=== PATIENT | female | born 1995 | race African-American/Black ===

== ENCOUNTER 2021-03-27 06:27 | Inpatient (IN) | payer SELFPAY ==
[~2021-03-27] VITALS: Ht 170.2 cm; Wt 104.5 kg
--- NOTE | 2021-03-27 07:29 | ED.ADGEN ---
Past Medical History Past Surgical History: No Surgical History General Adult EDM: Chief Complaint: SHORTNESS OF BREATH HPI: HPI: Patient is a 25 year old female coming to the emergency because she thinks she might have Covid. Patient has had shortness of breath, cough, body aches for the past couple days. She is not vaccinated. Denies any history of asthma, COPD, or smoking. States she has a albuterol inhaler that she had from having bronchitis that she has been using. Review of Systems: Review of Systems: All other systems within normal limits except for as noted in the HPI Current Medications: Current Medications Medications (Trade) Dose Ordered Sig/Jeff Start Time Stop Time Status Last Admin Dose Admin Info (CONTRAST GIVEN -- Rx MONITORING) 1 each PRN DAILY PRN 03/27/21 10:30 03/29/21 10:29 Iohexol (Omnipaque 350 Mg/ml) 100 ml 1X ONCE 03/27/21 10:30 03/27/21 10:31 DC 03/27/21 10:55 100 ML Ketorolac Tromethamine (Toradol 15mg Vial) 15 mg 1X ONCE 03/27/21 09:45 03/27/21 09:46 DC 03/27/21 09:52 15 MG Sodium Chloride 1,000 ml @ 1,000 mls/hr 1X ONCE 03/27/21 08:15 03/27/21 09:14 DC 03/27/21 08:42 1,000 MLS/HR Allergies: Allergies: Allergies Coded Allergies Type Severity Reaction Last Updated Verified No Known Drug Allergies 03/27/21 No Physical Exam: PE: Constitutional: Well developed, well nourished, no acute distress, non-toxic appearance. [] HENT: Normocephalic, atraumatic, bilateral external ears normal, nose normal. [] Eyes: PERRLA, conjunctiva normal, no discharge. [] Neck: No rigidity, supple, no stridor. [] Cardiovascular: Regular rate and rhythm, brisk cap refill [] Lungs & Thorax: Non labored symmetric respirations, mild tachypnea, bilateral rhonchi Abdomen: Soft, nondistended. Skin: Warm, dry, no erythema, no rash. [] Back: Unremarkable Extremities: No deformities, range of motion grossly intact, no lower extremity edema [] Neurologic: Alert and oriented X 3, no focal deficits noted. [] Psychologic: Affect normal, judgement normal, mood normal. [] Current Patient Data: Labs: Laboratory Tests Test 03/27/21 07:34 03/27/21 08:40 03/27/21 08:48 Influenza Type A Antigen Negative (NEGATIVE) Influenza Type B Antigen Negative (NEGATIVE) SARS-CoV-2 Antigen (Rapid) Negative (NEGATIVE) White Blood Count 7.2 x10^3/uL (4.0-11.0) Red Blood Count 5.10 x10^6/uL (3.50-5.40) Hemoglobin 14.1 g/dL (12.0-15.5) Hematocrit 42.5 % (36.0-47.0) Mean Corpuscular Volume 83 fL (79-100) Mean Corpuscular Hemoglobin 28 pg (25-35) Mean Corpuscular Hemoglobin Concent 33 g/dL (31-37) Red Cell Distribution Width 14.4 % (11.5-14.5) Platelet Count 221 x10^3/uL (140-400) Neutrophils (%) (Auto) 90 % (31-73) H Lymphocytes (%) (Auto) 4 % (24-48) L Monocytes (%) (Auto) 6 % (0-9) Eosinophils (%) (Auto) 0 % (0-3) Basophils (%) (Auto) 1 % (0-3) Neutrophils # (Auto) 6.4 x10^3/uL (1.8-7.7) Lymphocytes # (Auto) 0.3 x10^3/uL (1.0-4.8) L Monocytes # (Auto) 0.4 x10^3/uL (0.0-1.1) Eosinophils # (Auto) 0.0 x10^3/uL (0.0-0.7) Basophils # (Auto) 0.0 x10^3/uL (0.0-0.2) Segmented Neutrophils % 93 % (35-66) H Lymphocytes % 4 % (24-48) L Monocytes % 2 % (0-10) Basophils % 1 % (0-3) Platelet Estimate Adequate (ADEQUATE) D-Dimer (Ary) 0.84 ug/mlFEU (0.00-0.50) H Urine Collection Type Unknown Urine Color Yellow Urine Clarity Clear Urine pH 6.0 (<5.0-8.0) Urine Specific [place] >=1.030 (1.000-1.030) Urine Protein Negative mg/dL (NEG-TRACE) Urine Glucose (UA) Negative mg/dL (NEG) Urine Ketones (Stick) 40 mg/dL (NEG) Urine Blood Small (NEG) Urine Nitrite Negative (NEG) Urine Bilirubin Negative (NEG) Urine Urobilinogen Dipstick 1.0 mg/dL (0.2 mg/dL) Urine Leukocyte Esterase Negative (NEG) Urine RBC 0 /HPF (0-2) Urine WBC 0 /HPF (0-4) Urine Squamous Epithelial Cells Mod /LPF Urine Bacteria 0 /HPF (0-FEW) Urine Mucus Marked /LPF Sodium Level 137 mmol/L (136-145) Potassium Level 4.1 mmol/L (3.5-5.1) Chloride Level 102 mmol/L (98-107) Carbon Dioxide Level 23 mmol/L (21-32) Anion Gap 12 (6-14) Blood Urea Nitrogen 7 mg/dL (7-20) Creatinine 0.8 mg/dL (0.6-1.0) Estimated GFR (Cockcroft-Gault) 104.9 BUN/Creatinine Ratio 9 (6-20) Glucose Level 98 mg/dL (70-99) Calcium Level 8.9 mg/dL (8.5-10.1) Total Bilirubin 0.4 mg/dL (0.2-1.0) Aspartate Amino Transferase (AST) 29 U/L (15-37) Alanine Aminotransferase (ALT) 42 U/L (14-59) Alkaline Phosphatase 55 U/L (46-116) BU-Cjp-L-Type Natriuretic Peptide 82 pg/mL (0-124) Total Protein 7.8 g/dL (6.4-8.2) Albumin 3.9 g/dL (3.4-5.0) Albumin/Globulin Ratio 1.0 (1.0-1.7) POC Urine HCG, Qualitative Hcg negative (Negative) Laboratory Tests 03/27/21 08:40 Laboratory Tests 03/27/21 08:40 Vital Signs: Vital Signs Date Time Temp Pulse Resp B/P (MAP) Pulse Ox O2 Delivery O2 Flow Rate FiO2 03/27/21 10:38 99 40 135/80 (98) 100 Nasal Cannula 2.0 03/27/21 07:00 99.6 99.6 EKG: EKG: [] Heart Score: C/O Chest Pain: No Risk Factors: Risk Factors: DM, Current or recent (<one month) smoker, HTN, HLP, family history of CAD, obesity. Risk Scores: Score 0 - 3: 2.5% MACE over next 6 weeks - Discharge Home Score 4 - 6: 20.3% MACE over next 6 weeks - Admit for Clinical Observation Score 7 - 10: 72.7% MACE over next 6 weeks - Early Invasive Strategies Radiology/Procedures: Radiology/Procedures: [facility] [address] [place] [address] IMAGING REPORT Signed PATIENT: SYLVIE CHRISTENSEN NACCOUNT: [id number] : 1995 LOCATION: ER AGE: 25 SEX: F EXAM STATUS: REG ER ORD. PHYSICIAN: LAURA LANDEROS MD REASON: ELEVATED D DIMER. R/O PE PROCEDURE: CT ANGIOGRAPHY CHEST CTA CHEST dated 03/27/2021 10:35 AM Indication:Reason: ELEVATED D DIMER. R/O PE . Shortness of breath. Comparison: No comparison is available. Technique: CT images were made using an infusion of 100 MLO Omnipaque 350. MIP reconstructions also were performed. One or more of the following individualized dose reduction techniques were utilized for this examination: 1. Automated exposure control 2. Adjustment of the mA and/or kV according to patient size 3. Use of iterative reconstruction technique Findings: There is an irregular opacity in the periphery of the right upper lobe. This measures about 1.7 cm AP and 1.2 cm medial laterally. There is mild respiratory motion artifact slightly limiting evaluation. Other smaller peripheral areas of opacity are seen in both lungs. Some of these resemble atelectasis, although others are more nodular in appearance. The central airways show no obstruction. There is a mildly enlarged left axillary node measuring about 1.4 x 1.1 cm. There are also enlarged right hilar nodes measuring up to about 1.3 cm. Mild subcarinal fullness is also seen. There are borderline enlarged left hilar nodes. Evaluation of the pulmonary arterial tree shows modest opacification of the vessels. There is mild motion artifact. No convincing abnormal filling defect is seen. Images through the upper abdomen show no apparent abnormality. IMPRESSION: No evidence of pulmonary embolism. Evaluation of smaller branches is slightly limited by some respiratory motion and only modest vessel opacification. There are pulmonary opacities bilaterally. Given the patient's age, neoplasm would be unlikely. These may be infectious/inflammatory such as septic emboli. There are also some mildly prominent lymph nodes, as discussed above. Follow-up CT would be useful to confirm these clear. Electronically signed by: Jared Li Jr., MD (03/27/2021 11:08 AM) [facility] DICTATED and SIGNED BY: JARED LI Jr, MD DATE: 03/27/21 [id number] [] Course & Med Decision Making: Course & Med Decision Making Pertinent Labs and Imaging studies reviewed. (See chart for details) Patient tachypneic and desatted 80% on room air. Was on nasal cannula was started on steroids antibiotics for suspected septic emboli on CTA and admitted to hospitalist for antibiotics and further investigation into source of the emb sadia [] Dragon Disclaimer: Dragon Disclaimer: This electronic medical record was generated, in whole or in part, using a voice recognition dictation system. Departure Departure Impression: Primary Impression: Person under investigation for COVID-19 Disposition: ADMITTED INPATIENT Admitting Physician: JENNIFER Condition: GUARDED Referrals: UNKNOWN PCP NAME (PCP) LAURA LANDEROS MD Mar 27, 2021 07:29
[2021-03-27 08:02] LABS: INFLUENZA A PATIENT NEGATIVE (NEGATIVE); INFLUENZA B PATIENT NEGATIVE (NEGATIVE)
[2021-03-27] MEDS ORDERED: IV NORMAL SALINE 1000ML BAG 1,000 ML IV ONE (08:15)
--- NOTE | 2021-03-27 08:26 | RAD ---
PROCEDURE: XR CHEST 1V.03/27/2021 8:23 AM REASON FOR STUDY: Reason: soa / Spl. Instructions: / History: . COMPARISON: None. FINDINGS: The lungs are clear. No pleural fluid is seen. Heart size and pulmonary vascularity appear normal. IMPRESSION: No apparent acute abnormality. Electronically signed by: Irving Brand Jr., MD (03/27/2021 8:23 AM) [facility]ENTER[facility]andon
[2021-03-27 09:02] LABS: BILIRUBIN,URINE NEGATIVE (NEG); CLARITY,URINE CLEAR; COLOR,URINE YELLOW; NITRITE,URINE NEGATIVE (NEG); PROTEIN,URINE NEGATIVE (NEG-TRACE)
[2021-03-27 09:04] LABS: BASO % 1 % (0-3); EOS % 0 % (0-3); HEMATOCRIT 42.5 % (36.0-47.0); HEMOGLOBIN 14.1 g/dL (12.0-15.5); LYMPH # 0.3 x10^3/uL (1.0-4.8); LYMPH % 4 % (24-48); MEAN CORPUSCULAR HEMOGLOBIN 28 pg (25-35); MEAN CORPUSCULAR HGB CONC 33 g/dL (31-37); MEAN CORPUSCULAR VOLUME 83 fL (79-100); MONO # 0.4 x10^3/uL (0.0-1.1); MONO % 6 % (0-9); NEUT # 6.4 x10^3/uL (1.8-7.7); NEUT % 90 % (31-73); PLATELET COUNT 221 x10^3/uL (140-400); RED CELL DISTRIBUTION WIDTH 14.4 % (11.5-14.5); WHITE BLOOD COUNT 7.2 x10^3/uL (4.0-11.0)
[2021-03-27 09:09] LABS: CALCIUM 8.9 mg/dL (8.5-10.1); CREATININE 0.8 mg/dL (0.6-1.0); GFR 104.9; POTASSIUM 4.1 mmol/L (3.5-5.1)
[2021-03-27 09:13] LABS: BACTERIA,URINE 0 /HPF (0-FEW); RBC,URINE 0 /HPF (0-2); WBC,URINE 0 /HPF (0-4)
[2021-03-27 09:15] LABS: ALBUMIN 3.9 g/dL (3.4-5.0); TOTAL BILIRUBIN 0.4 mg/dL (0.2-1.0); TOTAL PROTEIN 7.8 g/dL (6.4-8.2)
[2021-03-27] MEDS ORDERED: KETOROLAC 15 MG/ML VIAL. IVP ONE (09:45)
[2021-03-27 10:17] LABS: % BASOS 1 % (0-3); % LYMPHS 4 % (24-48); % MONOS 2 % (0-10); % SEGS 93 % (35-66)
[2021-03-27 10:18] LABS: PLT ESTIMATE ADEQUATE (ADEQUATE)
[2021-03-27] MEDS ORDERED: IOHEXOL 350 MG/ML 100 ML VIAL. IV ONE (10:30)
[2021-03-27] MEDS ORDERED: CONTRAST GIVEN. MC PRN (10:30)
--- NOTE | 2021-03-27 11:10 | RAD ---
CTA CHEST dated 03/27/2021 10:35 AM Indication:Reason: ELEVATED D DIMER. R/O PE . Shortness of breath. Comparison: No comparison is available. Technique: CT images were made using an infusion of 100 MLO Omnipaque 350. MIP reconstructions also w ere performed. One or more of the following individualized dose reduction techniques were utilized for this examinat ion: 1. Automated exposure control 2. Adjustment of the mA and/or kV according to patient size 3. Use of iterative reconstruction technique Findings: There is an irregular opacity in the periphery of the right upper lobe. This measures about 1.7 cm AP and 1.2 cm medial laterally. There is mild respiratory motion artifact slightly limiting evaluation. Other smaller peripheral areas of opacity are seen in both lungs. Some of these resemble atelectasis , although others are more nodular in appearance. The central airways show no obstruction. There is a mildly enlarged left axillary node measuring about 1.4 x 1.1 cm. There are also enlarged right hilar nodes measuring up to about 1.3 cm. Mild subcarinal fullness is also seen. There are borderline enla rged left hilar nodes. Evaluation of the pulmonary arterial tree shows modest opacification of the vessels. There is mild mo tion artifact. No convincing abnormal filling defect is seen. Images through the upper abdomen show no apparent abnormality. IMPRESSION: No evidence of pulmonary embolism. Evaluation of smaller branches is slightly limited by some respira tory motion and only modest vessel opacification. There are pulmonary opacities bilaterally. Given the patient's age, neoplasm would be unlikely. These may be infectious/inflammatory such as septic emboli. There are also some mildly prominent lymph nod es, as discussed above. Follow-up CT would be useful to confirm these clear. Electronically signed by: Irving Brand Jr., MD (03/27/2021 11:08 AM) [facility]ITAL[facility]andon
[2021-03-27] MEDS ORDERED: PIPERACILLIN/TAZOBACTAM 3.375 GM in IV NORMAL SALINE 50ML 50 ML IV ONE (12:00)
[2021-03-27] MEDS ORDERED: DEXAMETHASONE SOD PHOS 20 MG/5 ML VIAL. IV ONE (12:00)
[2021-03-27] MEDS ORDERED: VANCOMYCIN 2 GM in IV NORMAL SALINE 500ML BAG 500 ML IV ONE (12:00)
[2021-03-27] MEDS ORDERED: PIP/TAZO PER PHARMACY MC PRN (12:15)
[2021-03-27] MEDS ORDERED: ONDANSETRON PF 4 MG/2 ML VIAL. IVP PRN (12:15)
[2021-03-27] MEDS ORDERED: VANCOMYCIN PER PHARMACY MC PRN (12:15)
--- NOTE | 2021-03-27 12:28 | HP ---
DATE OF SERVICE: 03/27/2021 ADMIT DATE: 03/27/2021 CHIEF COMPLAINT: Shortness of breath. HISTORY OF PRESENT ILLNESS: The patient is a pleasant 25-year-old female who presents with shortness of breath. Clinically, she looks like she has COVID-19, but her COVID test is negative. We did a CAT scan that is showing some possible septic emboli in the lungs. I discussed the case with the ER physician. I am going to admit the patient and put on IV vancomycin and IV Zosyn, and consult Pulmonary Medicine. PAST MEDICAL HISTORY: Benign. ALLERGIES: None. FAMILY HISTORY: Diabetes. SOCIAL HISTORY: She does not drink, smoke or take drugs. She works with Medicare insurance. MEDICATIONS: Reviewed. Please refer to the MRAD. REVIEW OF SYSTEMS: GENERAL: No history of weight change, weakness or fevers. SKIN: No bruising, hair changes or rashes. EYES: No blurred, double or loss of vision. NOSE AND THROAT: No history of nosebleeds, hoarseness or sore throat. HEART: No history of palpitations, chest pain or shortness of breath on exertion. LUNGS: She complains of shortness of breath. GASTROINTESTINAL: Denies changes in appetite, nausea, vomiting, diarrhea or constipation. GENITOURINARY: No history of frequency, urgency, hesitancy or nocturia. NEUROLOGIC: Denies history of numbness, tingling, tremor or weakness. PSYCHIATRIC: No history of panic, anxiety or depression. ENDOCRINE: No history of heat or cold intolerance, polyuria or polydipsia. EXTREMITIES: Denies muscle weakness, joint pain, pain on walking or stiffness. PHYSICAL EXAMINATION: VITALS: Within normal limits and are stable. GENERAL: No apparent distress. Alert and oriented. HEENT: Normal cephalic atraumatic, external auditory canals are patent. Eyes: Extraocular muscles are intact, pupils are equally round and reactive to light and accommodation. MUSCULOSKELETAL: Well developed, well nourished, good range of motion. ENDOCRINE: No thyromegaly was palpated. LYMPHATICS: No cervical chain or axillary nodes were noted. HEMATOPOIETIC: No bruising. NECK: Supple, no JVD, no thyromegaly was noted. LUNGS: She has bibasilar crackles. HEART: RRR, S1, S2 present. Peripheral pulses intact, no obvious murmurs were noted. ABDOMEN: Soft, nontender. Positive bowel sounds, no organomegaly, normal bowel sounds. EXTREMITIES: Without any cyanosis, clubbing, or edema. Pedal pulses intact, Homans sign is negative. NEUROLOGIC: Normal speech, normal tone. A and O x 3, moves all extremities, no obvious focal deficits. PSYCHIATRIC: Normal affect, normal mood. Stable. SKIN: No ulcerations or rashes, good skin turgor, no jaundice. VASCULAR: Good capillary refill, neurovascular bundle appears to be intact. LABORATORY DATA: White count 7, hemoglobin 14, platelets 221. Electrolytes normal. BNP normal at 82. D-dimer is slightly high at 0.84. Urinalysis negative. COVID testing negative. ASSESSMENT AND PLAN: Shortness of breath with abnormal CAT scan of the chest, suspicious for possible pulmonary septic emboli. The patient has been admitted. We will start IV Zosyn, IV vancomycin. Consult Pulmonary Medicine. Home meds. Deep venous thrombosis prophylaxis. Full code. Cardiac monitoring. P.r.n. Tylenol, p.r.n. fentanyl, p.r.n. Zofran. MIRIAM/DAWOOD DR: Mingo TID: [id number]
[2021-03-27] MEDS: fentaNYL PF VIAL 100 MCG/2 ML VIAL IVP PRN ×2 (13:06→16:48)
--- NOTE | 2021-03-27 15:45 | NUR ---
Pharmacy Vancomycin Dosing Note S:Consulted to monitor and dose vancomycin started 03/27/21. O:SYLVIE CHRISTENSEN is a 25 year old F with possible septic emboli in lungs. Height: 5 feet, 7 inches Weight: 104.5 kg Dosing Weight: Actual Other Antibiotics: ZOSYN 4.5G IV Q6HRS LABS: Last BUN: 7 Last Creatinine: 0.8 Creatinine Clearance: > 100 mL/min Last WBC: 7 Last Procalcitonin: - Tmax (past 24 hours): 99.6 Microbiology: BLOOD CX PENDING I/O: 1050/200 A: Patient requires vancomycin for possible infectious embolic in lungs, goal trough 15-20 mcg/ml. Patient's SCr is 0.8 with an eCrCl of > 100 ml/min. Initiate the following: P: 1. Initiate Vancomycin 2000 mg IV x 1 dose, then 1250 mg IV q8h 2. Follow up Trough level on 03/28/21 at 1130 3. Pharmacy will continue to monitor, follow and adjust therapy as needed. REYMUNDO ARRIAGA [facility], 03/27/21 [id number]
[2021-03-27 16:19] LABS: BASE EXCESS COOX -4 mmol/L (-3-3); HCO3 COOX 20 mmol/L (21-28); PCO2 COOX 36 mmHg (35-46); PO2 COOX 62 mmHg (85-108); SAT O2 COOX 90 % (92-99)
[2021-03-27 16:20] LABS: METHEMOGLOBIN 0.4 % (0.0-1.9)
[2021-03-27 16:59] LABS: BARBITURATES NEG (NEG); BENZODIAZEPINES NEG (NEG); CANNABINOIDS POS (NEG); COCAINE NEG (NEG); METHADONE NEG (NEG); OPIATES NEG (NEG); PHENCYCLIDINE NEG (NEG)
[2021-03-27 17:00] LABS: AMPHETAMINE/METHAMPHETAMINE NEG (NEG)
[2021-03-27] MEDS: PIPERACILLIN/TAZOBACTAM 4.5 GM in IV NORMAL SALINE 100ML 100 ML IV SCH (18:36)
[2021-03-27] MEDS: ACETAMINOPHEN 325 MG TABLET. PO PRN (19:35)
[2021-03-27] MEDS: VANCOMYCIN 1.25 GM in IV NORMAL SALINE 250ML 250 ML IV SCH (19:48)
[2021-03-27] MEDS: IPRATRPIUM/ALBUTEROL 0.5/2.5MG 3 ML NEBU. NEB SCH (20:16)
[2021-03-27] MEDS ORDERED: diphenhydrAMINE HCL 25 MG CAPSULE PO ONE (21:30)
[2021-03-27] MEDS: SODIUM BICARBONATE VIAL 50 MEQ in IV 1/2 NORMAL SALINE 1,000 ML IV SCH (21:41)
[2021-03-28] MEDS: PIPERACILLIN/TAZOBACTAM 4.5 GM in IV NORMAL SALINE 100ML 100 ML IV SCH ×4 (00:09→18:34)
[2021-03-28] MEDS: ACETAMINOPHEN 325 MG TABLET. PO PRN ×2 (02:39→18:33)
[2021-03-28] MEDS: POLYVINYL ALCOHOL 1.4% OPHTH SOLUTION 15ML BOTTLE. OU PRN ×3 (02:39→10:19)
[2021-03-28 03:01] LABS: BASE EXCESS ABG -6 mmol/L (-3-3); HCO3 ABG 20 mmol/L (21-28); PCO2 ABG 40 mmHg (35-46); PO2 ABG 88 mmHg (85-108); SAT O2 ABG 95 % (92-99)
[2021-03-28 03:02] LABS: FIO2 ABG 40
[2021-03-28] MEDS: VANCOMYCIN 1.25 GM in IV NORMAL SALINE 250ML 250 ML IV SCH (03:42)
[2021-03-28] MEDS: IPRATRPIUM/ALBUTEROL 0.5/2.5MG 3 ML NEBU. NEB SCH ×7 (04:00→23:43)
[2021-03-28] MEDS: fentaNYL PF VIAL 100 MCG/2 ML VIAL IVP PRN ×3 (04:15→10:09)
[2021-03-28 07:46] LABS: CREATININE 0.9 mg/dL (0.6-1.0); GFR 91.6
--- NOTE | 2021-03-28 08:20 | PDOC ---
Infectious Disease Note Vital Sign Vital Signs Vital Signs Date Time Temp Pulse Resp B/P (MAP) Pulse Ox O2 Delivery O2 Flow Rate FiO2 03/28/21 07:33 98 BiPAP/CPAP 03/28/21 07:06 98.6 80 40 114/65 (81) 98.6 03/27/21 16:51 5.0 Labs Lab Laboratory Tests Test 03/27/21 08:40 03/27/21 08:48 03/27/21 16:05 03/27/21 20:20 White Blood Count 7.2 x10^3/uL (4.0-11.0) Red Blood Count 5.10 x10^6/uL (3.50-5.40) Hemoglobin 14.1 g/dL (12.0-15.5) Hematocrit 42.5 % (36.0-47.0) Mean Corpuscular Volume 83 fL (79-100) Mean Corpuscular Hemoglobin 28 pg (25-35) Mean Corpuscular Hemoglobin Concent 33 g/dL (31-37) Red Cell Distribution Width 14.4 % (11.5-14.5) Platelet Count 221 x10^3/uL (140-400) Neutrophils (%) (Auto) 90 % (31-73) Lymphocytes (%) (Auto) 4 % (24-48) Monocytes (%) (Auto) 6 % (0-9) Eosinophils (%) (Auto) 0 % (0-3) Basophils (%) (Auto) 1 % (0-3) Neutrophils # (Auto) 6.4 x10^3/uL (1.8-7.7) Lymphocytes # (Auto) 0.3 x10^3/uL (1.0-4.8) Monocytes # (Auto) 0.4 x10^3/uL (0.0-1.1) Eosinophils # (Auto) 0.0 x10^3/uL (0.0-0.7) Basophils # (Auto) 0.0 x10^3/uL (0.0-0.2) Segmented Neutrophils % 93 % (35-66) Lymphocytes % 4 % (24-48) Monocytes % 2 % (0-10) Basophils % 1 % (0-3) Platelet Estimate Adequate (ADEQUATE) D-Dimer (Ary) 0.84 ug/mlFEU (0.00-0.50) Urine Collection Type Unknown Urine Color Yellow Urine Clarity Clear Urine pH 6.0 (<5.0-8.0) Urine Specific [place] >=1.030 (1.000-1.030) Urine Protein Negative mg/dL (NEG-TRACE) Urine Glucose (UA) Negative mg/dL (NEG) Urine Ketones (Stick) 40 mg/dL (NEG) Urine Blood Small (NEG) Urine Nitrite Negative (NEG) Urine Bilirubin Negative (NEG) Urine Urobilinogen Dipstick 1.0 mg/dL (0.2 mg/dL) Urine Leukocyte Esterase Negative (NEG) Urine RBC 0 /HPF (0-2) Urine WBC 0 /HPF (0-4) Urine Squamous Epithelial Cells Mod /LPF Urine Bacteria 0 /HPF (0-FEW) Urine Mucus Marked /LPF Sodium Level 137 mmol/L (136-145) Potassium Level 4.1 mmol/L (3.5-5.1) Chloride Level 102 mmol/L (98-107) Carbon Dioxide Level 23 mmol/L (21-32) Anion Gap 12 (6-14) Blood Urea Nitrogen 7 mg/dL (7-20) Creatinine 0.8 mg/dL (0.6-1.0) Estimated GFR (Cockcroft-Gault) 104.9 BUN/Creatinine Ratio 9 (6-20) Glucose Level 98 mg/dL (70-99) Calcium Level 8.9 mg/dL (8.5-10.1) Total Bilirubin 0.4 mg/dL (0.2-1.0) Aspartate Amino Transf (AST/SGOT) 29 U/L (15-37) Alanine Aminotransferase (ALT/SGPT) 42 U/L (14-59) Alkaline Phosphatase 55 U/L (46-116) TL-Bfh-P-Type Natriuretic Peptide 82 pg/mL (0-124) Total Protein 7.8 g/dL (6.4-8.2) Albumin 3.9 g/dL (3.4-5.0) Albumin/Globulin Ratio 1.0 (1.0-1.7) Urine Opiates Screen Neg (NEG) Urine Methadone Screen Neg (NEG) Urine Barbiturates Neg (NEG) Urine Phencyclidine Screen Neg (NEG) Urine Amphetamine/Methamphetamine Neg (NEG) Urine Benzodiazepines Screen Neg (NEG) Urine Cocaine Screen Neg (NEG) Urine Cannabinoids Screen Pos (NEG) Urine Ethyl Alcohol Neg (NEG) Bedside Urine HCG, Qualitative Hcg negative (Negative) O2 Saturation 90 % (92-99) 95 % (92-99) Arterial Blood pH 7.37 (7.35-7.45) 7.31 (7.35-7.45) Arterial Blood pCO2 at Patient Temp 36 mmHg (35-46) 40 mmHg (35-46) Arterial Blood pO2 at Patient Temp 62 mmHg (85-108) 88 mmHg (85-108) Arterial Blood HCO3 20 mmol/L (21-28) 20 mmol/L (21-28) Arterial Blood Base Excess -4 mmol/L (-3-3) -6 mmol/L (-3-3) Oxyhemoglobin 90.0 % Methemoglobin 0.4 % (0.0-1.9) Carbon Monoxide, Quantitative 0.3 % (0.0-1.9) FiO2 2.5 lpm nc 40 Test 03/27/21 21:20 03/28/21 07:00 Lactic Acid Level 0.8 mmol/L (0.4-2.0) Creatinine 0.9 mg/dL (0.6-1.0) Estimated GFR (Cockcroft-Gault) 91.6 Objective Assessment PT SEEN, CONSULT DICTATED Plan Plan of Care / OLIVIA DOZIER MD Mar 28, 2021 08:20
[2021-03-28] MEDS: LACTOBACILLUS RHAMNOSUS GG 1 CAPSULE. PO SCH ×2 (10:00→21:10)
[2021-03-28] MEDS: ENOXAPARIN 40 MG/0.4 ML SYRINGE. SQ SCH (10:04)
--- NOTE | 2021-03-28 11:31 | CONS ---
DATE OF CONSULTATION: 03/28/2021 PULMONARY CONSULTATION REASON FOR CONSULTATION: Respiratory failure. HISTORY OF PRESENT ILLNESS: The patient is a 25-year-old obese female with a BMI of 36. She denies any tobacco use, but does use marijuana. She was brought into the hospital with complaint of shortness of breath for the last 4-5 days. She has been having cough, mostly is dry. She has not received COVID vaccine. The patient denies any cocaine use. The patient underwent CTA chest in the ER, which was reviewed by me. There was no evidence of pulmonary embolism. There was some respiratory motion artifact. There were irregular nodular opacities in both lungs, largest of being in the right upper lobe 1.7 cm in size. There were other nodular opacities as well. There was some mildly enlarged left axillary lymph node and right hilar lymph node. The patient is requiring oxygen via nasal cannula in the Emergency Room. She is on 6 liters. Consultation requested for further evaluation and management. She has no history of any COVID infection. PAST MEDICAL HISTORY: Essentially unremarkable except for questionable mild seasonal asthma. PAST SURGICAL HISTORY: No recent surgeries. ALLERGIES: None. FAMILY HISTORY: Diabetes. SOCIAL HISTORY: Smokes marijuana. Works with Medicare insurance. CURRENT MEDICATIONS: Reviewed as listed in the MRAD including Zosyn and Zyvox. REVIEW OF SYSTEMS: A 12-point review of system obtained. Pertinent positives discussed in my present illness, otherwise noncontributory. All systems that were negative were reviewed as well. SOCIAL HISTORY: Smoked marijuana. No tobacco use. PHYSICAL EXAMINATION: VITAL SIGNS: Reviewed. She is anxious. Blood pressure stable, pulse ox 98% on 6 liters. T-max of 99. NECK: Supple. LUNGS: With diminished breath sounds. CARDIOVASCULAR: With a regular rate. ABDOMEN: Soft, obese. EXTREMITIES: With no pitting edema. LABORATORY DATA: Reviewed. White cell count 7.2, hemoglobin 14.1, platelets are 221. COVID and influenza negative. ABGs with a pH of 7.31, pCO2 of 40 and a pO2 of 88 with bicarbonate of 20. On 40% FiO2. IMPRESSION: 1. Acute hypoxic and hypercapnic respiratory failure secondary to bilateral pneumonia. COVID is negative so far. 2. History of marijuana use, but no tobacco use. 3. Abnormal CT chest with bilateral nodular opacities, largest being 1.7 cm in the right upper lobe and some right hilar adenopathy. Likely reactive and inflammatory. At her age, less likely malignancy. Clinically, less likely septic emboli as she does not give any history of IV drug use, but we will monitor with an echocardiogram. RECOMMENDATIONS: 1. Continue with present antibiotics. 2. Continue to keep saturation 92 and above via nasal cannula. 3. Cardiology consultation and echocardiogram. 4. Bronchodilators. 5. We will follow along with you. Discussed with ER physician and RN. MANUEL DR: Arlene TID: [id number]
--- NOTE | 2021-03-28 11:44 | CONS ---
DATE OF CONSULTATION: 03/28/2021 REQUESTING PHYSICIAN: Debbie Vazquez DO REASON FOR CONSULTATION: Possible septic emboli. HISTORY OF PRESENT ILLNESS: This is a 25-year-old female who has had bronchitis/asthma with shortness of breath in the past before, but not like this she says. She came in with about 3-4 days of history of shortness of breath. She said she had fever at home, some dry cough, no chest pain. Denies any nausea, vomiting, diarrhea, abdominal pain, urinary symptoms or bowel symptoms. PAST MEDICAL HISTORY: The patient has no other past medical history. Past medical history is unknown or nothing contributory. ALLERGIES: No known drug allergies. SOCIAL HISTORY: She does not smoke or do IV drug use. She does do marijuana sometimes. No alcohol use. CURRENT MEDICATIONS: Reviewed. REVIEW OF SYSTEMS: As in HPI. All other systems reviewed are negative. PHYSICAL EXAMINATION: GENERAL: Alert, oriented female, not in distress. VITAL SIGNS: Stable. Temperature 98.6, pulse 77, respirations 40, blood pressure 121/77. HEENT: Both pupils are round and reacting. No conjunctival lesion. No lesion in the mouth. NECK: Supple. No JVP, no lymphadenopathy. LUNGS: Clear. HEART: S1, S2 regular. ABDOMEN: Soft, nontender, no organomegaly. EXTREMITIES: No edema or cyanosis. SKIN: Unremarkable. NEUROLOGIC: The patient is alert, awake and appropriate. No focal neurologic deficit. In fact, she is on BiPAP right now. LABORATORY DATA: White count is 7.2, platelets are normal. BUN and creatinine is normal. Lactic acid is normal. Liver functions are normal. Urinalysis unremarkable. The drug screen showed marijuana positive. Otherwise, unremarkable. COVID negative. Influenza negative. DIAGNOSTIC DATA: Chest x-ray unremarkable. Chest CT done, which showed no pulmonary embolism. There is a pulmonary opacity, what is reported as bilaterally, I was able to see on one side only and there are some mildly enlarged lymph nodes. The blood gases showed pO2 originally of 62 on 2.5 nasal cannula, although on room air, it was reported to be 90% oxygen saturation. IMPRESSION: 1. Hypoxic respiratory failure, etiology unclear. 2. Two pulmonary nodules , inflammatory , infection possible. 3. Possibility of asthma. She has had shortness of breath in the past before. RECOMMENDATIONS: Would change vancomycin to Zyvox, continue Zosyn, supportive care, we will follow the cultures and may need some anxiety medicine and we will continue to follow. Thank you very much, Dr. Vazquez, for giving me opportunity to participate in this patient's care. CRICKET/NOEMI DR: CRICKET/minerva TID: [id number] RADHA
[2021-03-28] MEDS: SODIUM BICARBONATE VIAL 50 MEQ in IV 1/2 NORMAL SALINE 1,000 ML IV SCH (12:13)
--- NOTE | 2021-03-28 14:47 | PDOC ---
[employer] PROGRESS NOTE Date of Service DOS: DATE: 03/28/21 TIME: 14:43 Chief Complaint Chief Complaint Acute hypoxic respiratory failure secondary to pneumonia likely bacterial versus viral -Patient presenting with worsening shortness of breath. CAT scan concerning for Covid but Covid negative. Possible concern for pulmonary septic emboli -Continue antibiotic Zosyn and Zyvox per infectious disease -Pulmonary consulted -Echo ordered to evaluate for any valvular vegetations -Diet as tolerated -As needed pain control nausea control anxiety med -Wean O2 as tolerated -DVT prophylaxis History of Present Illness History of Present Illness The patient is a pleasant 25-year-old female who presents with shortness of breath. Clinically, she looks like she has COVID-19, but her COVID test is negative. We did a CAT scan that is showing some possible septic emboli in the lungs. I discussed the case with the ER physician. I am going to admit the patient and put on IV vancomycin and IV Zosyn, and consult Pulmonary Medicine 03/28 Patient was evaluated and examined at bedside. Was resting in bed very pleasant. Reported to me she was hurting and just feeling unwell all over. Still having some shortness of breath especially when she tries to move around in her bed. We will try some as needed pain medication. Pulmonary and ID following. Continue Zyvox Zosyn. Echo ordered eval of any valvular vegetations that could have led to septic emboli. Covid PCR negative Vitals/I&O Vitals/I&O: Vital Signs Date Time Temp Pulse Resp B/P (MAP) Pulse Ox O2 Delivery O2 Flow Rate FiO2 03/28/21 14:12 101 40 141/90 (107) 100 Room Air 03/28/21 12:18 6.0 03/28/21 07:06 98.6 98.6 I & O 03/27/21 03/27/21 03/28/21 15:00 23:00 07:00 Intake Total 1050 ml 850 ml 450 ml Output Total 200 ml Balance 850 ml 850 ml 450 ml Physical Exam General: Alert, Oriented X3, Cooperative Heart: Regular rate, Normal S1, Normal S2 Lungs: Other (Decreased air entry throughout) Abdomen: Normal bowel sounds, Soft, No tenderness Extremities: No edema, Normal pulses Skin: No significant lesion Labs Labs: Laboratory Tests Test 03/27/21 16:05 03/27/21 20:20 03/27/21 21:20 03/28/21 07:00 O2 Saturation 90 % (92-99) 95 % (92-99) Arterial Blood pH 7.37 (7.35-7.45) 7.31 (7.35-7.45) Arterial Blood pCO2 at Patient Temp 36 mmHg (35-46) 40 mmHg (35-46) Arterial Blood pO2 at Patient Temp 62 mmHg (85-108) 88 mmHg (85-108) Arterial Blood HCO3 20 mmol/L (21-28) 20 mmol/L (21-28) Arterial Blood Base Excess -4 mmol/L (-3-3) -6 mmol/L (-3-3) Oxyhemoglobin 90.0 % Methemoglobin 0.4 % (0.0-1.9) Carbon Monoxide, Quantitative 0.3 % (0.0-1.9) FiO2 2.5 lpm nc 40 Lactic Acid Level 0.8 mmol/L (0.4-2.0) Creatinine 0.9 mg/dL (0.6-1.0) Estimated GFR (Cockcroft-Gault) 91.6 Comment Review of Relevant I have reviewed the following items aracely (where applicable) has been applied. Medications: Current Medications Medications (Trade) Dose Ordered Sig/Jeff Route PRN Reason Start Time Stop Time Status Last Admin Dose Admin Lorazepam (Ativan Inj) 0.5 mg 1X ONCE IVP 03/27/21 15:15 03/27/21 15:16 DC 03/27/21 15:13 Piperacillin Sod/ Tazobactam Sod 4.5 gm/Sodium Chloride 100 ml @ 200 mls/hr Q6HRS IV 03/27/21 18:00 03/28/21 12:10 Vancomycin HCl 1.25 gm/Sodium Chloride 250 ml @ 167 mls/hr Q8H IV 03/27/21 20:00 03/28/21 08:26 DC 03/28/21 03:42 Albuterol/ Ipratropium (Duoneb) 3 ml Q4HRS NEB 03/27/21 20:00 03/28/21 12:18 Sodium Bicarbonate 50 meq/Sodium Chloride 1,050 ml @ 75 mls/hr Q14H IV 03/27/21 22:00 03/28/21 12:13 Diphenhydramine HCl (Benadryl) 25 mg 1X ONCE PO 03/27/21 21:30 03/27/21 21:31 DC 03/27/21 23:02 Glycerin/ Hypromellose/ Polyethylene (Artificial Tears) 1 drop PRN Q15MIN PRN OU DRY EYE 03/28/21 02:00 03/28/21 10:19 Linezolid/Dextrose 300 ml @ 300 mls/hr Q12HR IV 03/28/21 09:00 03/28/21 10:10 Lactobacillus Rhamnosus (Culturelle) 1 cap BID PO 03/28/21 09:00 03/28/21 10:00 Enoxaparin Sodium (Lovenox 40mg Syringe) 40 mg DAILY SQ 03/28/21 09:00 03/28/21 10:04 Justifications for Admission Other Justification KATRINA GERBER MD Mar 28, 2021 14:47
[2021-03-28] MEDS: oxyCODONE/APAP 5/325 1 TAB TABLET PO PRN ×3 (14:59→21:10)
--- NOTE | 2021-03-28 17:02 | NUR ---
patient triggered sepsis upon admission. sepsis protocol already in place.
[2021-03-28 19:00] VITALS: BP 124/62
[2021-03-28 22:44] VITALS: BP 105/75
[2021-03-29] MEDS: PIPERACILLIN/TAZOBACTAM 4.5 GM in IV NORMAL SALINE 100ML 100 ML IV SCH ×4 (01:49→18:10)
[2021-03-29] MEDS: oxyCODONE/APAP 5/325 1 TAB TABLET PO PRN ×3 (02:11→21:16)
[2021-03-29 02:34] VITALS: BP 136/95
[2021-03-29 04:25] LABS: GFR 81.1
[2021-03-29] MEDS: SODIUM BICARBONATE VIAL 50 MEQ in IV 1/2 NORMAL SALINE 1,000 ML IV SCH (05:45)
[2021-03-29 07:00] VITALS: BP 149/105
[2021-03-29] MEDS: IPRATRPIUM/ALBUTEROL 0.5/2.5MG 3 ML NEBU. NEB SCH (07:14)
--- NOTE | 2021-03-29 08:32 | PDOC ---
Infectious Disease Note Subjective Subjective Patient is feeling better today ROS ROS No nausea vomiting diarrhea ,, breathing is better Vital Sign Vital Signs Vital Signs Date Time Temp Pulse Resp B/P (MAP) Pulse Ox O2 Delivery O2 Flow Rate FiO2 03/29/21 07:15 96 Nasal Cannula 9.0 03/29/21 07:00 99.0 120 18 149/105 (120) 99.0 Physical Exam PHYSICAL EXAM GENERAL: Alert, oriented female, mild distress VITAL SIGNS: Stable. HEENT: Both pupils are round and reacting. No conjunctival lesion. No lesion in the mouth. NECK: Supple. No JVP, no lymphadenopathy. LUNGS: Clear. HEART: S1, S2 regular. ABDOMEN: Soft, nontender, no organomegaly. EXTREMITIES: No edema or cyanosis. SKIN: Unremarkable. NEUROLOGIC: The patient is alert, awake and appropriate. No focal neurologic deficit. she is on 6 L of oxygen Labs Lab Laboratory Tests Test 03/29/21 03:40 Creatinine 1.0 mg/dL (0.6-1.0) Estimated GFR (Cockcroft-Gault) 81.1 Micro Microbiology 03/27/21 Blood Culture - Preliminary, Resulted NO GROWTH AFTER 1 DAY Objective Assessment IMPRESSION: 1. Hypoxic respiratory failure, etiology unclear. 2. 2 pulmonary nodules 3. Possibility of asthma. She has had shortness of breath in the past before. Plan Plan of Care Continue antibiotics Continue supportive care Blood culture so far negative Echo is pending OLIVIA DOZIER MD Mar 29, 2021 08:32
[2021-03-29] MEDS: ENOXAPARIN 40 MG/0.4 ML SYRINGE. SQ SCH (09:30)
[2021-03-29] MEDS: LACTOBACILLUS RHAMNOSUS GG 1 CAPSULE. PO SCH ×2 (09:30→21:16)
--- NOTE | 2021-03-29 10:05 | PDOC ---
PULMONARY PROGRESS NOTES DATE: 03/29/21 TIME: 10:03 Subjective Appears anxious. Less short of breath. Remains on high flow nasal cannula Vitals Vital Signs Date Time Temp Pulse Resp B/P (MAP) Pulse Ox O2 Delivery O2 Flow Rate FiO2 03/29/21 07:15 96 Nasal Cannula 9.0 03/29/21 07:00 99.0 120 18 149/105 (120) 99.0 General: Alert, No acute distress Lungs: Clear Cardiovascular: S1 Abdomen: Soft Neuro Exam: Alert Extremities: No Edema Skin: Warm Labs Laboratory Tests Test 03/27/21 16:05 03/27/21 20:20 03/27/21 21:20 03/28/21 07:00 O2 Saturation 90 % (92-99) 95 % (92-99) Arterial Blood pH 7.37 (7.35-7.45) 7.31 (7.35-7.45) Arterial Blood pCO2 at Patient Temp 36 mmHg (35-46) 40 mmHg (35-46) Arterial Blood pO2 at Patient Temp 62 mmHg (85-108) 88 mmHg (85-108) Arterial Blood HCO3 20 mmol/L (21-28) 20 mmol/L (21-28) Arterial Blood Base Excess -4 mmol/L (-3-3) -6 mmol/L (-3-3) Oxyhemoglobin 90.0 % Methemoglobin 0.4 % (0.0-1.9) Carbon Monoxide, Quantitative 0.3 % (0.0-1.9) FiO2 2.5 lpm nc 40 Lactic Acid Level 0.8 mmol/L (0.4-2.0) Creatinine 0.9 mg/dL (0.6-1.0) Estimated GFR (Cockcroft-Gault) 91.6 Test 03/29/21 03:40 Creatinine 1.0 mg/dL (0.6-1.0) Estimated GFR (Cockcroft-Gault) 81.1 Laboratory Tests Test 03/29/21 03:40 Creatinine 1.0 mg/dL (0.6-1.0) Estimated GFR (Cockcroft-Gault) 81.1 Impression . 1. Acute hypoxic and hypercapnic respiratory failure secondary to bilateral pneumonia. COVID is negative 2. History of marijuana use, but no tobacco use. 3. Abnormal CT chest with bilateral nodular opacities, largest being 1.7 cm in the right upper lobe and some right hilar adenopathy. Likely reactive and inflammatory. At her age, less likely malignancy. Clinically, less likely septic emboli as she does not give any history of IV drug use, but we will monitor with an echocardiogram. Plan . RECOMMENDATIONS: 1. Continue with present antibiotics. 2. Continue to keep saturation 92 and above via nasal cannula. 3. Cardiology consultation and echocardiogram. Awaiting report of echo. 4. Bronchodilators. 5. We will follow along with you. ALHAJI GARDINER MD Mar 29, 2021 10:05
[2021-03-29 11:00] VITALS: BP 112/71
[2021-03-29] MEDS: ACETAMINOPHEN 325 MG TABLET. PO PRN (11:36)
--- NOTE | 2021-03-29 11:53 | NUR ---
SW following. Discussed with RN, pt from home, 9L (does not use oxygen at home), regular diet. ID, Cardiology and Pulmonology following. Flu and COVID-19 negative. Some discussion about reswabbing pt for COVID. Med Assist following for self pay status. SW will continue to follow.
--- NOTE | 2021-03-29 13:03 | CARD ---
MR#: [id number] Date of Study: 03/29/2021 Ordering Physician: KATRINA GERBER, Referring Physician: KATRINA GERBER, Tech: Lupis Sengtimbo, [facility] APPROVED REPORT EXAM: Two-dimensional and M-mode echocardiogram with Doppler and color Doppler. Other Information Quality : AverageHR: 100bpm Technically limited study due to body habitus. INDICATION Dyspnea Check Heart Valves, Vegetations 2D DIMENSIONS RVDd4.0 (2.9-3.5cm)Left Atrium(2D)2.4 (1.6-4.0cm) IVSd0.7 (0.7-1.1cm)Aortic Root(2D)2.9 (2.0-3.7cm) LVDd3.7 (3.9-5.9cm)LVOT Diameter2.1 (1.8-2.4cm) PWd1.0 (0.7-1.1cm)LVDs2.9 (2.5-4.0cm) FS (%) 23.0 %SV27.4 ml LVEF(%)46.9 (>50%) Aortic Valve AoV Peak Ryan.157.3cm/sAoV VTI25.4cm AO Peak GR.9.9mmHgLVOT VTI 19.36cm AO Mean GR.6mmHg Mitral Valve MV E Qlpxtphw89.0cm/sMV E Peak Gr.2mmHg MV DECEL [id number] A Acikhkdb91.7cm/s MV E Mean Gr.2mmHgE/A Ratio0.9 TDI Lateral E' P. V8.95cm/sMedial E' P. V11.13cm/s E/Lateral E'6.3E/Medial E'5.0 Tricuspid Valve TR P. Yxpntevv339kk/sRAP [id number] TR Peak Gr.94qfDwQCDH11ldQo Pulmonary Vein S1 Gymkjxba74.3cm/sS2 Uichcvyv62.35cm/s D2 Nckrkfgf56.4cm/s LEFT VENTRICLE The left ventricle is normal size. There is normal left ventricular wall thickness. The left ventricu lar systolic function is normal and the ejection fraction is within normal range. The Ejection Fracti on is 55%. Septal motion suggestive of conduction defect. There is normal LV segmental wall motion. T ransmitral Doppler flow pattern is Grade I-abnormal relaxation pattern. RIGHT VENTRICLE The right ventricle is normal size. There is normal right ventricular wall thickness. The right ventr icular systolic function is normal. ATRIA The left atrium size is normal. The right atrium size is normal. The interatrial septum is intact wit h no evidence for an atrial septal defect or patent foramen ovale as noted on 2-D or Doppler imaging. AORTIC VALVE The aortic valve is normal in structure and function. Doppler and Color Flow revealed trace aortic re gurgitation. There is no significant aortic valvular stenosis. Calculated aortic valve area is 2.54 c m2 with maximum pressure gradient of 14 mmHg and mean pressure gradient of 7 mmHg. MITRAL VALVE The mitral valve is normal in structure and function. There is no evidence of mitral valve prolapse. There is no mitral valve stenosis. Doppler and Color-flow revealed trace mitral regurgitation. TRICUSPID VALVE The tricuspid valve is normal in structure and function. Doppler and Color Flow revealed trace tricus pid regurgitation with an estimated PAP of 36 mmHg. There is no tricuspid valve stenosis. PULMONIC VALVE Not well visualized. Doppler and Color Flow revealed trace to mild pulmonic valvular regurgitation. T here is no pulmonic valvular stenosis. GREAT VESSELS The aortic root is normal in size. The IVC is normal in size and collapses >50% with inspiration. PERICARDIAL EFFUSION There is no evidence of significant pericardial effusion. Critical Notification Critical Value: No <Conclusion> The left ventricular systolic function is normal and the ejection fraction is within normal range. Th e Ejection Fraction is 55%. Septal motion suggestive of conduction defect. There is normal LV segmental wall motion. No obvious evidence of valvular heart disease or vegetation on the visualized valve structures. If there is high clinical suspicion for endocarditis, consider GRACE. Signed by : Alexis Farnsworth, Electronically Approved : 03/29/2021 13:03:14
[2021-03-29] MEDS: IPRATROPIUM/ALBUTEROL 20/100mcg/INH INHALER. INH SCH ×3 (13:14→21:15)
[2021-03-29 15:00] VITALS: BP 127/83
[2021-03-29 19:00] VITALS: BP 140/89
--- NOTE | 2021-03-29 22:37 | PDOC ---
[employer] PROGRESS NOTE Date of Service DOS: DATE: 03/29/21 TIME: 22:35 Chief Complaint Chief Complaint Acute hypoxic respiratory failure secondary to pneumonia likely bacterial versus viral -Patient presenting with worsening shortness of breath. CAT scan concerning for Covid but Covid negative. Possible concern for pulmonary septic emboli -Continue antibiotic Zosyn and Zyvox per infectious disease -Pulmonary consulted -Echo ordered to evaluate for any valvular vegetations -Diet as tolerated -As needed pain control nausea control anxiety med -Wean O2 as tolerated -DVT prophylaxis History of Present Illness History of Present Illness The patient is a pleasant 25-year-old female who presents with shortness of breath. Clinically, she looks like she has COVID-19, but her COVID test is negative. We did a CAT scan that is showing some possible septic emboli in the lungs. I discussed the case with the ER physician. I am going to admit the patient and put on IV vancomycin and IV Zosyn, and consult Pulmonary Medicine 03/28 Patient was evaluated and examined at bedside. Was resting in bed very pleasant. Reported to me she was hurting and just feeling unwell all over. Still having some shortness of breath especially when she tries to move around in her bed. We will try some as needed pain medication. Pulmonary and ID following. Continue Zyvox Zosyn. Echo ordered eval of any valvular vegetations that could have led to septic emboli. Covid PCR negative 03/29 Patient evaluated and examined at [facility]. On nasal cannula when evaluated. Reported ongoing SOB to me. continue ABX. ID and Pulmonary following. ECHO showing no sign of vegetations Vitals/I&O Vitals/I&O: Vital Signs Date Time Temp Pulse Resp B/P (MAP) Pulse Ox O2 Delivery O2 Flow Rate FiO2 03/29/21 21:46 100 Nasal Cannula 5.0 03/29/21 19:00 98.4 94 18 140/89 (106) 98.4 I & O 03/28/21 03/28/21 03/29/21 15:00 23:00 07:00 Intake Total 1400 ml Balance 1400 ml Physical Exam Physical Exam: GENERAL: Alert, oriented female, mild distress VITAL SIGNS: Stable. HEENT: Both pupils are round and reacting. No conjunctival lesion. No lesion in the mouth. NECK: Supple. No JVP, no lymphadenopathy. LUNGS: Clear. HEART: S1, S2 regular. ABDOMEN: Soft, nontender, no organomegaly. EXTREMITIES: No edema or cyanosis. SKIN: Unremarkable. NEUROLOGIC: The patient is alert, awake and appropriate. No focal neurologic deficit. she is on 6 L of oxygen General: Alert, Oriented X3, Cooperative Heart: Regular rate, Normal S1, Normal S2 Lungs: Clear Abdomen: Normal bowel sounds, Soft, No tenderness Extremities: No edema, Normal pulses Skin: No significant lesion Labs Labs: Laboratory Tests Test 03/29/21 03:40 03/29/21 10:50 Creatinine 1.0 mg/dL (0.6-1.0) Estimated GFR (Cockcroft-Gault) 81.1 SARS-CoV-2 RNA (RICA) Negative (Negative) Assessment and Plan Assessmemt and Plan Problems Medical Problems: (1) Person under investigation for COVID-19 Status: Acute Comment Review of Relevant I have reviewed the following items aracely (where applicable) has been applied. Medications: Current Medications Medications (Trade) Dose Ordered Sig/Jeff Route PRN Reason Start Time Stop Time Status Last Admin Dose Admin Albuterol/ Ipratropium (Combivent Respimat 20-100 Mcg) 1 puff Q4HRS INH 03/29/21 12:00 03/29/21 21:15 Justifications for Admission Other Justification KATRINA GERBER MD Mar 29, 2021 22:37
[2021-03-29 22:55] VITALS: BP 132/80
[2021-03-30 02:35] VITALS: BP 134/72
[2021-03-30] MEDS: IPRATROPIUM/ALBUTEROL 20/100mcg/INH INHALER. INH SCH ×6 (04:00→20:54)
[2021-03-30] MEDS: PIPERACILLIN/TAZOBACTAM 4.5 GM in IV NORMAL SALINE 100ML 100 ML IV SCH ×5 (06:00→23:24)
[2021-03-30 07:00] VITALS: BP 128/85
[2021-03-30 07:43] LABS: CREATININE 0.7 mg/dL (0.6-1.0); GFR 122.4
--- NOTE | 2021-03-30 08:57 | PDOC ---
Infectious Disease Note Subjective Subjective Patient is feeling better today says ROS MERNA No nausea vomiting diarrhea. Low-grade fever. Vital Sign Vital Signs Vital Signs Date Time Temp Pulse Resp B/P (MAP) Pulse Ox O2 Delivery O2 Flow Rate FiO2 03/30/21 07:00 98.8 91 18 128/85 (99) 97 Nasal Cannula 5.0 98.8 Physical Exam PHYSICAL EXAM GENERAL: Alert, oriented female, mild distress VITAL SIGNS: Stable. HEENT: Both pupils are round and reacting. No conjunctival lesion. No lesion in the mouth. NECK: Supple. No JVP, no lymphadenopathy. LUNGS: Clear. HEART: S1, S2 regular. ABDOMEN: Soft, nontender, no organomegaly. EXTREMITIES: No edema or cyanosis. SKIN: Unremarkable. NEUROLOGIC: The patient is alert, awake and appropriate. No focal neurologic deficit. she is on 6 L of oxygen Labs Lab Laboratory Tests Test 03/29/21 10:50 03/30/21 06:00 SARS-CoV-2 RNA (RICA) Negative (Negative) Creatinine 0.7 mg/dL (0.6-1.0) Estimated GFR (Cockcroft-Gault) 122.4 Micro Microbiology 03/27/21 Blood Culture - Preliminary, Resulted NO GROWTH AFTER 1 DAY Objective Assessment IMPRESSION: 1. Hypoxic respiratory failure, etiology unclear. 2. 2 pulmonary nodules 3. Possibility of asthma. She has had shortness of breath in the past before. Plan Plan of Care Continue antibiotics Continue supportive care Blood culture so far negative Echo normal OLIVIA DOZIER MD Mar 30, 2021 08:57
[2021-03-30] MEDS: LACTOBACILLUS RHAMNOSUS GG 1 CAPSULE. PO SCH ×2 (09:41→20:55)
[2021-03-30] MEDS: ACETAMINOPHEN 325 MG TABLET. PO PRN ×2 (09:41→17:20)
[2021-03-30] MEDS: ENOXAPARIN 40 MG/0.4 ML SYRINGE. SQ SCH (09:42)
--- NOTE | 2021-03-30 09:56 | PDOC ---
PULMONARY PROGRESS NOTES DATE: 03/30/21 TIME: 09:54 Subjective Denies any increased shortness of breath while resting in bed. Remains on high flow oxygen at 6 to 8 L. Vitals Vital Signs Date Time Temp Pulse Resp B/P (MAP) Pulse Ox O2 Delivery O2 Flow Rate FiO2 03/30/21 07:00 98.8 91 18 128/85 (99) 97 Nasal Cannula 5.0 98.8 General: Alert, No acute distress Lungs: Clear Cardiovascular: S1 Abdomen: Soft Neuro Exam: Alert Extremities: No Edema Skin: Warm Labs Laboratory Tests Test 03/29/21 03:40 03/29/21 10:50 03/30/21 06:00 Creatinine 1.0 mg/dL (0.6-1.0) 0.7 mg/dL (0.6-1.0) Estimated GFR (Cockcroft-Gault) 81.1 122.4 SARS-CoV-2 RNA (RICA) Negative (Negative) Laboratory Tests Test 03/29/21 10:50 03/30/21 06:00 SARS-CoV-2 RNA (RICA) Negative (Negative) Creatinine 0.7 mg/dL (0.6-1.0) Estimated GFR (Cockcroft-Gault) 122.4 Impression . 1. Acute hypoxic and hypercapnic respiratory failure secondary to bilateral pneumonia. COVID is negative. Patient remains hypoxic requiring 6 to 8 L of oxygen. Hypoxia somewhat out of proportion to the CTA chest findings. 2. History of marijuana use, but no tobacco use. 3. Abnormal CT chest with bilateral nodular opacities, largest being 1.7 cm in the right upper lobe and some right hilar adenopathy. Likely reactive and inflammatory. At her age, less likely malignancy. Clinically, less likely septic emboli as she does not give any history of IV drug use, Plan . RECOMMENDATIONS: 1. Continue with present antibiotics. 2. Continue to keep saturation 92 and above via nasal cannula. As discussed above hypoxia somewhat out of proportion to the CTA chest findings. 3. Bedside echo with no significant LV dysfunction or valvular abnormalities. She does have some septal motion abnormality. Would recommend getting echo with bubble study to rule out any shunting 4. Bronchodilators. 5. Discussed with patient and ALHAJI Rossi MD Mar 30, 2021 09:56
--- NOTE | 2021-03-30 09:57 | PDOC ---
[employer] PROGRESS NOTE Date of Service DOS: DATE: 03/30/21 TIME: 09:53 Chief Complaint Chief Complaint Acute hypoxic respiratory failure secondary to pneumonia likely bacterial versus viral -Patient presenting with worsening shortness of breath. CAT scan concerning for Covid but Covid negative. Possible concern for pulmonary septic emboli -Continue antibiotic Zosyn and Zyvox per infectious disease -Pulmonary consulted -Echo ordered to evaluate for any valvular vegetations -Diet as tolerated -As needed pain control nausea control anxiety med -Wean O2 as tolerated -DVT prophylaxis History of Present Illness History of Present Illness The patient is a pleasant 25-year-old female who presents with shortness of breath. Clinically, she looks like she has COVID-19, but her COVID test is negative. We did a CAT scan that is showing some possible septic emboli in the lungs. I discussed the case with the ER physician. I am going to admit the patient and put on IV vancomycin and IV Zosyn, and consult Pulmonary Medicine 03/30/2021 Patient seen and examined Patient is awake and alert Patient states she feels a bit better, complains of headache, back pain, chest pain, and anxiety Otherwise patient is in NAD 9L O2 per NC, humidified Chart reviewed Discussed with RN 03/29 Patient evaluated and examined at [facility]. On nasal cannula when evaluated. Reported ongoing SOB to me. continue ABX. ID and Pulmonary following. ECHO showing no sign of vegetations 03/28 Patient was evaluated and examined at bedside. Was resting in bed very pleasant. Reported to me she was hurting and just feeling unwell all over. Still having some shortness of breath especially when she tries to move around in her bed. We will try some as needed pain medication. Pulmonary and ID following. Continue Zyvox Zosyn. Echo ordered eval of any valvular vegetations that could have led to septic emboli. Covid PCR negative Vitals/I&O Vitals/I&O: Vital Signs Date Time Temp Pulse Resp B/P (MAP) Pulse Ox O2 Delivery O2 Flow Rate FiO2 03/30/21 07:00 98.8 91 18 128/85 (99) 97 Nasal Cannula 5.0 98.8 I & O 03/29/21 03/29/21 03/30/21 15:00 23:00 07:00 Intake Total 480 ml Output Total 1200 ml 400 ml Balance -1200 ml 80 ml Physical Exam Physical Exam: GENERAL: Alert, oriented female, mild distress VITAL SIGNS: Stable. HEENT: Both pupils are round and reacting. No conjunctival lesion. No lesion in the mouth. NECK: Supple. No JVP, no lymphadenopathy. LUNGS: Clear. HEART: S1, S2 regular. ABDOMEN: Soft, nontender, no organomegaly. EXTREMITIES: No edema or cyanosis. SKIN: Unremarkable. NEUROLOGIC: The patient is alert, awake and appropriate. No focal neurologic deficit. she is on 6 L of oxygen General: Alert, Oriented X3, Cooperative Heart: Regular rate, Normal S1, Normal S2 Lungs: Clear Abdomen: Normal bowel sounds, Soft, No tenderness Extremities: No edema, Normal pulses Skin: No significant lesion Labs Labs: Laboratory Tests Test 03/29/21 10:50 03/30/21 06:00 SARS-CoV-2 RNA (RICA) Negative (Negative) Creatinine 0.7 mg/dL (0.6-1.0) Estimated GFR (Cockcroft-Gault) 122.4 Assessment and Plan Assessmemt and Plan Problems Medical Problems: (1) Person under investigation for COVID-19 Status: Acute Shortness of breath Acute hypoxic respiratory failure secondary to pneumonia Plan: IV antibiotics Home meds DVT prophylaxis Full code Cardiac monitoring Pain meds PRN Anxiety meds PRN Nausea meds PRN Appreciate subspecialist input Comment Review of Relevant I have reviewed the following items aracely (where applicable) has been applied. Medications: Current Medications Medications (Trade) Dose Ordered Sig/Jeff Route PRN Reason Start Time Stop Time Status Last Admin Dose Admin Albuterol/ Ipratropium (Combivent Respimat 20-100 Mcg) 1 puff Q4HRS INH 03/29/21 12:00 03/30/21 09:43 Justifications for Admission Other Justification MARKO JAQUEZ III DO Mar 30, 2021 09:57
[2021-03-30 11:00] VITALS: BP 126/66
--- NOTE | 2021-03-30 11:03 | PDOC2 ---
LAURA ALMODOVAR PRESSER ALL AROUND 03/30/21 1103: CARDIAC CONSULT DATE OF CONSULT Date of Consult DATE: 03/30/21 TIME: 10:34 REASON FOR CONSULT Reason for Consult: Dyspnea REFERRING PHYSICIAN Referring Physician: Dr. Cutler SOURCE Source: Chart review, Patient HISTORY OF PRESENT ILLNESS HISTORY OF PRESENT ILLNESS This is a 25 yo female who presented secondary shortness of breath for the last 4-5 days, cough, and body aches. Thought she may have COVID so she came to the ED for further evaluation and treatment. COVID rapid and RNA x2 negative. Echo with preserved LV systolic function. CXR with evidence of bilateral pneumonia. She denies any dizziness, diaphoresis, chest pain, or nausea/vomiting. PAST MEDICAL HISTORY Pulmonary: Asthma PAST SURGICAL HISTORY Past Surgical History: No pertinent history FAMILY HISTORY Family History: Diabetes SOCIAL HISTORY Smoke: No ALCOHOL: none Drugs: Marijuana Lives: with Family CURRENT MEDICATIONS CURRENT MEDICATIONS Current Medications Medications (Trade) Dose Ordered Sig/Jeff Route PRN Reason Start Time Stop Time Status Last Admin Dose Admin Albuterol/ Ipratropium (Combivent Respimat 20-100 Mcg) 1 puff Q4HRS INH 03/29/21 12:00 03/30/21 09:43 ALLERGIES ALLERGIES: Coded Allergies: No Known Drug Allergies (Unverified , 03/27/21) ROS Review of System 14 point ROS conducted with pertinent positives noted above in HPI PHYSICAL EXAM General: Alert, Oriented X3, Cooperative, No acute distress HEENT: Atraumatic Lungs: Other (diminished bases) Heart: Regular rate Abdomen: Soft, No tenderness Extremities: No edema Skin: No significant lesion Neuro: Normal speech, Sensation intact Psych/Mental Status: Mental status NL, Mood NL MUSCULOSKELETAL: No joint tenderness VITALS/I&O VITALS/I&O: Vital Signs Date Time Temp Pulse Resp B/P (MAP) Pulse Ox O2 Delivery O2 Flow Rate FiO2 03/30/21 07:00 98.8 91 18 128/85 (99) 97 Nasal Cannula 5.0 98.8 I & O 03/29/21 03/29/21 03/30/21 15:00 23:00 07:00 Intake Total 480 ml Output Total 1200 ml 400 ml Balance -1200 ml 80 ml LABS Lab: Laboratory Tests Test 03/29/21 10:50 03/30/21 06:00 SARS-CoV-2 RNA (RICA) Negative (Negative) Creatinine 0.7 mg/dL (0.6-1.0) Estimated GFR (Cockcroft-Gault) 122.4 Laboratory Tests 03/30/21 06:00 ECHOCARDIOGRAM ECHOCARDIOGRAM <Conclusion> The left ventricular systolic function is normal and the ejection fraction is within normal range. The Ejection Fraction is 55%. Septal motion suggestive of conduction defect. There is normal LV segmental wall motion. No obvious evidence of valvular heart disease or vegetation on the visualized valve structures. If there is high clinical suspicion for endocarditis, consider GRACE. DATE: 03/29/21 [id number] ASSESSMENT/PLAN ASSESSMENT/PLAN 1. Acute respiratory failure secondary to PNA. COVID negative. Low suspicion for CHF. NT Pro BNP WNL. Echo with preserved LV systolic function 2. Fevers; BC negative so far 3. Marijuana use. 4. Elevated d-dimer; CTA negative for PE 5. Obesity Recommendations Obtain echo with bubble study to r/o intracardiac shunting. Ongoing lung optimization, treatment of PNA ALBIN STEEL MD 03/30/21 1743: CARDIAC CONSULT ASSESSMENT/PLAN ASSESSMENT/PLAN Patient seen and examined. Agree with INTERNATIONAL LOGISTICS ANALYST's assessment and plan. Acute respiratory failure secondary to pneumonia. Covid test negative. Clinical picture and physical exam not consistent with CHF 2D echo showed normal LV systolic function Continue current treatment for pneumonia Thank you for your consultation LAURA ALMODOVAR APRN Mar 30, 2021 11:03 ALBIN STEEL MD Mar 30, 2021 17:43
[2021-03-30 15:11] VITALS: BP 133/84
[2021-03-30 19:00] VITALS: BP 107/67
[2021-03-30] MEDS: oxyCODONE/APAP 5/325 1 TAB TABLET PO PRN (20:54)
[2021-03-30] MEDS ORDERED: SODIUM CHLORIDE 0.65% NASAL SPRAY 45ML BOTTLE. NS PRN (21:30)
[2021-03-30 22:44] VITALS: BP 115/65
[2021-03-31] MEDS: IPRATRPIUM/ALBUTEROL 0.5/2.5MG 3 ML NEBU. NEB SCH ×6 (00:37→20:11)
[2021-03-31 03:00] VITALS: BP 121/77
[2021-03-31] MEDS: PIPERACILLIN/TAZOBACTAM 4.5 GM in IV NORMAL SALINE 100ML 100 ML IV SCH ×3 (05:08→17:42)
[2021-03-31 07:00] VITALS: BP 127/81
[2021-03-31] MEDS: LACTOBACILLUS RHAMNOSUS GG 1 CAPSULE. PO SCH ×2 (08:27→21:22)
[2021-03-31] MEDS: oxyCODONE/APAP 5/325 1 TAB TABLET PO PRN ×3 (08:27→21:22)
[2021-03-31] MEDS: ENOXAPARIN 40 MG/0.4 ML SYRINGE. SQ SCH (08:30)
--- NOTE | 2021-03-31 09:56 | PDOC ---
Infectious Disease Note Subjective Subjective Patient is feeling better today says oxygen is down to 2 L ROS ROS No nausea vomiting diarrhea or fever Vital Sign Vital Signs Vital Signs Date Time Temp Pulse Resp B/P (MAP) Pulse Ox O2 Delivery O2 Flow Rate FiO2 03/31/21 08:27 Nasal Cannula 2.0 03/31/21 07:00 98.1 78 18 127/81 (96) 98 98.1 Physical Exam PHYSICAL EXAM GENERAL: Alert, oriented female, mild distress VITAL SIGNS: Stable. HEENT: Both pupils are round and reacting. No conjunctival lesion. No lesion in the mouth. NECK: Supple. No JVP, no lymphadenopathy. LUNGS: Clear. HEART: S1, S2 regular. ABDOMEN: Soft, nontender, no organomegaly. EXTREMITIES: No edema or cyanosis. SKIN: Unremarkable. NEUROLOGIC: The patient is alert, awake and appropriate. No focal neurologic deficit. she is on 6 L of oxygen Labs Micro Microbiology 03/27/21 Blood Culture - Preliminary, Resulted NO GROWTH AFTER 1 DAY Objective Assessment IMPRESSION: 1. Hypoxic respiratory failure, etiology unclear. 2. 2 pulmonary nodules 3. Possibility of asthma. She has had shortness of breath in the past before. Plan Plan of Care Continue antibiotics Continue supportive care Blood culture so far negative Echo normal OLIVIA DOZIER MD Mar 31, 2021 09:55
--- NOTE | 2021-03-31 10:24 | PDOC ---
PULMONARY PROGRESS NOTES DATE: 03/31/21 TIME: 10:22 Subjective Clinically improving. Down to 2 L of oxygen. Vitals Vital Signs Date Time Temp Pulse Resp B/P (MAP) Pulse Ox O2 Delivery O2 Flow Rate FiO2 03/31/21 10:12 98 Nasal Cannula 2.0 03/31/21 07:00 98.1 78 18 127/81 (96) 98.1 General: Alert, No acute distress Lungs: Clear Cardiovascular: S1 Abdomen: Soft Neuro Exam: Alert Extremities: No Edema Skin: Warm Labs Laboratory Tests Test 03/29/21 10:50 03/30/21 06:00 SARS-CoV-2 RNA (RICA) Negative (Negative) Creatinine 0.7 mg/dL (0.6-1.0) Estimated GFR (Cockcroft-Gault) 122.4 Impression . 1. Acute hypoxic and hypercapnic respiratory failure secondary to bilateral pneumonia. COVID is negative. Oxygen requirement has improved. Now down to 2 L of oxygen. 2. History of marijuana use, but no tobacco use. 3. Abnormal CT chest with bilateral nodular opacities, largest being 1.7 cm in the right upper lobe and some right hilar adenopathy. Likely reactive and inflammatory. At her age, less likely malignancy. Clinically, less likely septic emboli as she does not give any history of IV drug use, Plan . RECOMMENDATIONS: 1. Continue with present antibiotics. 2. Continue to keep saturation 92 and above via nasal cannula. Wean off oxygen. Likely on room air next 24 hours. 3. Bedside echo with no significant LV dysfunction or valvular abnormalities. She does have some septal motion abnormality. Echo with bubble study did not show any significant shunting. 4. Bronchodilators. 5. Discussed with patient and Dr. Cutler Likely discharge in next 24 hours. Will need a follow-up CT chest in 6 to 8 weeks. ALHAJI GARDINER MD Mar 31, 2021 10:24
[2021-03-31 11:00] VITALS: BP 127/81
--- NOTE | 2021-03-31 11:14 | CARD ---
MR#: [id number] Date of Study: 03/30/2021 Ordering Physician: ALHAJI GARDINER, Referring Physician: ALHAJI GARDINER, Tech: Abeba Jerry, [facility] APPROVED REPORT EXAM: Two-dimensional and M-mode echocardiogram with Doppler and color Doppler. Other Information Quality : Average LEFT VENTRICLE The left ventricle is normal size. There is borderline to mild concentric left ventricular hypertroph y. The left ventricular systolic function is normal and the ejection fraction is within normal range. The Ejection Fraction is 50-55%. Septal motion consistent with conduction abnormality. Otherwise, gr ossly normal wall motion. RIGHT VENTRICLE The right ventricle is normal size. There is normal right ventricular wall thickness. The right ventr icular systolic function is normal. ATRIA The left atrium size is normal. The right atrium size is normal. The interatrial septum is intact wit h no evidence for an atrial septal defect or patent foramen ovale as noted on 2-D or Doppler imaging. Agitated saline study is negative. PULMONIC VALVE The pulmonic valve is not well visualized. GREAT VESSELS The aortic root is normal in size. The IVC is normal in size and collapses >50% with inspiration. PERICARDIAL EFFUSION There is no evidence of significant pericardial effusion. Critical Notification Critical Value: No <Conclusion> The left ventricular systolic function is normal and the ejection fraction is within normal range. Th e Ejection Fraction is 50-55%. Septal motion consistent with conduction abnormality. Otherwise, grossly normal wall motion. The interatrial septum is intact with no evidence for an atrial septal defect or patent foramen ovale as noted on 2-D or Doppler imaging. Agitated saline study is negative. Limited echo for bubble study only. Signed by : Alexis Farnsworth, Electronically Approved : 03/31/2021 11:14:08
--- NOTE | 2021-03-31 11:49 | NUR ---
SW following. Discussed with RN, per pulmonology likely discharge in the next 24 hours. Pt only requiring 2L oxygen currently - plan to wean off. Per Med Assist, pt is active with [place] [employer]. SW will continue to follow.
--- NOTE | 2021-03-31 12:41 | PDOC ---
[employer] PROGRESS NOTE Date of Service DOS: DATE: 03/31/21 TIME: 12:39 Chief Complaint Chief Complaint Acute hypoxic respiratory failure secondary to pneumonia likely bacterial versus viral History of Present Illness History of Present Illness 03/31/2021 Patient seen and examined Chart reviewed Discussed with RN Patient feeling much better today. She would like to go home soon. We will monitor for one more day and defer to pulmonology recommendations. Vitals/I&O Vitals/I&O: Vital Signs Date Time Temp Pulse Resp B/P (MAP) Pulse Ox O2 Delivery O2 Flow Rate FiO2 03/31/21 12:04 99 Nasal Cannula 2.0 03/31/21 11:00 96.1 68 18 127/81 (96) 96.1 I & O 03/30/21 03/30/21 03/31/21 15:00 23:00 07:00 Intake Total 250 ml 300 ml Balance 250 ml 300 ml Physical Exam Physical Exam: GENERAL: Alert, oriented female, mild distress VITAL SIGNS: Stable. HEENT: Both pupils are round and reacting. No conjunctival lesion. No lesion in the mouth. NECK: Supple. No JVP, no lymphadenopathy. LUNGS: Clear. HEART: S1, S2 regular. ABDOMEN: Soft, nontender, no organomegaly. EXTREMITIES: No edema or cyanosis. SKIN: Unremarkable. NEUROLOGIC: The patient is alert, awake and appropriate. No focal neurologic deficit. she is on 6 L of oxygen General: Alert, Oriented X3, Cooperative, No acute distress Heart: Regular rate Lungs: Clear Abdomen: Soft, No tenderness Extremities: No edema Skin: No significant lesion Assessment and Plan Assessmemt and Plan Problems Medical Problems: (1) Person under investigation for COVID-19 Status: Acute Shortness of breath Acute hypoxic respiratory failure secondary to pneumonia Plan: IV antibiotics Home meds DVT prophylaxis Full code Cardiac monitoring Pain meds PRN Anxiety meds PRN Nausea meds PRN Appreciate subspecialist input Comment Review of Relevant I have reviewed the following items aracely (where applicable) has been applied. Medications: Current Medications Medications (Trade) Dose Ordered Sig/Jeff Route PRN Reason Start Time Stop Time Status Last Admin Dose Admin Albuterol/ Ipratropium (Duoneb) 3 ml Q4HRS NEB 03/31/21 00:00 03/31/21 05:51 DC 03/31/21 00:37 Albuterol/ Ipratropium (Duoneb) 3 ml RTQID NEB 03/31/21 08:00 03/31/21 12:03 Justifications for Admission Other Justification MARKO JAQUEZ III DO Mar 31, 2021 12:41
[2021-03-31 15:00] VITALS: BP 129/74
[2021-03-31 19:00] VITALS: BP 144/82
[2021-03-31 23:00] VITALS: BP 132/72
[2021-04-01] MEDS: PIPERACILLIN/TAZOBACTAM 4.5 GM in IV NORMAL SALINE 100ML 100 ML IV SCH ×2 (00:56→06:18)
[2021-04-01 03:00] VITALS: BP 126/81
[2021-04-01 07:00] VITALS: BP 150/92
[2021-04-01] MEDS: IPRATRPIUM/ALBUTEROL 0.5/2.5MG 3 ML NEBU. NEB SCH ×2 (07:37→11:29)
[2021-04-01] MEDS: ENOXAPARIN 40 MG/0.4 ML SYRINGE. SQ SCH (09:00)
--- NOTE | 2021-04-01 10:01 | PDOC ---
Infectious Disease Note Subjective Subjective Patient is feeling better today off oxygen ROS ROS No nausea vomiting diarrhea chest pain shortness of breath or fever Vital Sign Vital Signs Vital Signs Date Time Temp Pulse Resp B/P (MAP) Pulse Ox O2 Delivery O2 Flow Rate FiO2 04/01/21 07:38 94 Room Air 04/01/21 07:00 98.7 91 18 150/92 (111) 98.7 03/31/21 23:00 2.0 Physical Exam PHYSICAL EXAM GENERAL: Alert, oriented female, mild distress VITAL SIGNS: Stable. HEENT: Both pupils are round and reacting. No conjunctival lesion. No lesion in the mouth. NECK: Supple. No JVP, no lymphadenopathy. LUNGS: Clear. HEART: S1, S2 regular. ABDOMEN: Soft, nontender, no organomegaly. EXTREMITIES: No edema or cyanosis. SKIN: Unremarkable. NEUROLOGIC: The patient is alert, awake and appropriate. No focal neurologic deficit. she is on 6 L of oxygen Labs Micro Microbiology 03/27/21 Blood Culture - Preliminary, Resulted NO GROWTH AFTER 1 DAY Objective Assessment IMPRESSION: 1. Hypoxic respiratory failure, etiology unclear. 2. 2 pulmonary nodules 3. Possibility of asthma. She has had shortness of breath in the past before. Plan Plan of Care Continue antibiotics can change to oral for possible discharge today Continue supportive care Blood culture so far negative Echo normal OLIVIA DOZIER MD Apr 01, 2021 10:01
[2021-04-01] MEDS ORDERED: AMOXICILLIN/K CLAV 875/125MG TABLET. PO SCH (10:30)
[2021-04-01 11:00] VITALS: BP 129/84
--- NOTE | 2021-04-01 12:20 | PDOC ---
PULMONARY PROGRESS NOTES DATE: 04/01/21 TIME: 12:18 Subjective Clinically improving. on RA Vitals Vital Signs Date Time Temp Pulse Resp B/P (MAP) Pulse Ox O2 Delivery O2 Flow Rate FiO2 04/01/21 08:00 Room Air 04/01/21 07:38 94 04/01/21 07:00 98.7 91 18 150/92 (111) 98.7 03/31/21 23:00 2.0 General: Alert, No acute distress Lungs: Clear Cardiovascular: S1 Abdomen: Soft Neuro Exam: Alert Extremities: No Edema Skin: Warm Impression . 1. Acute hypoxic and hypercapnic respiratory failure secondary to bilateral pneumonia. COVID is negative. Oxygen requirement has improved. Off oxygen. 2. History of marijuana use, but no tobacco use. 3. Abnormal CT chest with bilateral nodular opacities, largest being 1.7 cm in the right upper lobe and some right hilar adenopathy. Likely reactive and inflammatory. At her age, less likely malignancy. Clinically, less likely septic emboli as she does not give any history of IV drug use, Plan . RECOMMENDATIONS: 1. Abx PO per ID 2. off oxygen. 3. Bedside echo with no significant LV dysfunction or valvular abnormalities. She does have some septal motion abnormality. Echo with bubble study did not show any significant shunting. 4. Bronchodilators. 5. Discussed with patient and Dr. He del toro home today. Will need a follow-up CT chest in 6 to 8 weeks.Can be arranged thru her PCP ( Dr Shaikh to see her as OP) ALHAJI GARDINER MD Apr 01, 2021 12:20
[2021-04-01] MEDS: LACTOBACILLUS RHAMNOSUS GG 1 CAPSULE. PO SCH (13:30)
--- NOTE | 2021-04-01 13:35 | NUR ---
Discharge Note: SYLVIE CHRISTENSEN N[facility] Discharge instructions and discharge home medications reviewed with Patient and a copy given. All questions have been answered and understanding verbalized. The following instructions and handouts were given: discharge instructions, new prescriptions, education and follow up recommendations. Discontinued lines and drains: Peripheral IV discontinued intact. Patient discharged to Home or Self Care with Self via ambulated off unit by this RN to personal vehicle.
[2021-04-01] MEDS ORDERED: PIPERACILLIN/TAZOBACTAM 4.5 GM in IV DEXTROSE 5% 100ML 100 ML IV SCH (18:00)
--- NOTE | 2021-04-01 21:54 | DS ---
DATE OF DISCHARGE: 04/01/2021 ADMITTING DIAGNOSIS: Pulmonary septic emboli. DISCHARGE DIAGNOSIS: Resolving pulmonary septic emboli. HOSPITAL COURSE: The patient is a pleasant, middle-aged female who presented with shortness of breath, was noted to have respiratory failure with septic pulmonary emboli, started on broad spectrum antibiotics and vancomycin. I consulted ID and Pulmonary. Over the next 5 days, she has slowly returned to baseline. Today, I saw and examined her. She is doing great, wants to go home, will be discharged home. DISPOSITION: Home. ACTIVITY: As tolerated. DIET: Low sodium. MEDICATIONS: Please see the MRAD. Zyvox 600 p.o. b.i.d. and Augmentin 875 p.o. b.i.d. for 1 more week. TOTAL TIME: [address]: MIRIAM/minerva TID: [id number]
== END 2021-04-01 13:35 | disposition home or self-care (01) | DRG 193 ==
LOC: ER 06:27 → ED HOLD 11:30 → 5 SOUTH 03-28 15:13
PROVIDERS: ADMIT Internal Medicine; ATTEND Internal Medicine
PROC: 5A09357 Assistance with Respiratory Ventilation, Less than 24 Consecutive Hours, Continuous Positive Airway Pressure (ICD-10-PCS; 2021-03-27)
PROC: 5A09357 Assistance with Respiratory Ventilation, Less than 24 Consecutive Hours, Continuous Positive Airway Pressure (ICD-10-PCS; 2021-03-28)
PROC: 5A09357 Assistance with Respiratory Ventilation, Less than 24 Consecutive Hours, Continuous Positive Airway Pressure (ICD-10-PCS; principal; 2021-03-29)
DX: J18.9 Pneumonia, unspecified organism (principal); I26.90 Septic pulmonary embolism without acute cor pulmonale; J96.01 Acute respiratory failure with hypoxia; J96.02 Acute respiratory failure with hypercapnia; E66.9 Obesity, unspecified; F12.90 Cannabis use, unspecified, uncomplicated; J45.909 Unspecified asthma, uncomplicated; Z20.822 Contact with and (suspected) exposure to COVID-19; Z68.36 Body mass index [BMI] 36.0-36.9, adult; Z83.3 Family history of diabetes mellitus
CPT/HCPCS: 36415; 36600; 71045; 71275; 80053; 80307; 81001; 81025; 82565; 82805; 83605; 83880; 85007; 85025; 85379; 87040; 87426; 87804; 93306; 94640; 94660; 94760; 96361; 96374; J1100; J1650; J1885; J2020; J2060; J2543; J3010; J3370; J3490; J7030; J7040; J7050; Q9967; U0003; U0005; 97116-GP; 97530-GO; 97530-GP; 99285-25; G0378; Q0163

== ENCOUNTER 2021-04-13 14:58 | Emergency (ER) | payer MEDICAID ==
[~2021-04-13] VITALS: Ht 172.7 cm; Wt 105.0 kg
--- NOTE | 2021-04-13 15:39 | PHYS DOC ---
Past Medical History Past Medical History: Pneumonia Past Surgical History: No Surgical History Smoking Status: Current Every Day Smoker Alcohol Use: None Drug Use: Marijuana General Adult EDM: Chief Complaint: FEVER HPI: HPI: Patient is a 25-year-old female that presents today with body aches since 3:00 this morning. Patient states that yesterday she felt that she had headache and nasal congestion, but woke up at 3:00 this morning and had body aches. Patient states that she was admitted about 2 weeks ago at this facility for pneumonia, she states she was discharged recently and she is still currently taking antibiotics orally for that infection. Patient does state that she has a cough, she thinks that she has been running a fever but does not have a thermometer. Patient denies chest pain or shortness of air at this time. Patient does not have her Covid vaccines and has not had her influenza as well Review of Systems: Review of Systems: Constitutional: Chills Eyes: Denies change in visual acuity. [] HENT: Denies nasal congestion or sore throat. [] Respiratory: Cough; denies shortness of breath. [] Cardiovascular: Denies chest pain or edema. [] GI: Nausea and vomiting; denies abdominal pain, bloody stools or diarrhea. [] : Denies dysuria. [] Musculoskeletal: Body aches Integument: Denies rash. [] Neurologic: Headache denies focal weakness or sensory changes. [] Endocrine: Denies polyuria or polydipsia. [] Lymphatic: Denies swollen glands. [] Psychiatric: Denies depression or anxiety. [] Heart Score: C/O Chest Pain: N/A Risk Factors: Risk Factors: DM, Current or recent (<one month) smoker, HTN, HLP, family history of CAD, obesity. Risk Scores: Score 0 - 3: 2.5% MACE over next 6 weeks - Discharge Home Score 4 - 6: 20.3% MACE over next 6 weeks - Admit for Clinical Observation Score 7 - 10: 72.7% MACE over next 6 weeks - Early Invasive Strategies Allergies: Allergies: Allergies Coded Allergies Type Severity Reaction Last Updated Verified No Known Drug Allergies 04/13/21 No Physical Exam: PE: Constitutional: Well developed, well nourished, moderate distress, non-toxic appearance. [] HENT: Normocephalic, atraumatic, bilateral external ears normal, oropharynx moist, no oral exudates, nose reddened [] Eyes: PERRLA, EOMI, conjunctiva normal, no discharge. [] Neck: Normal range of motion, no tenderness, supple, no stridor. [] Cardiovascular:Heart rate regular rhythm, no murmur [] Lungs & Thorax: Bilateral breath sounds clear to auscultation [] Abdomen: Bowel sounds normal, soft, no tenderness, no masses, no pulsatile masses. [] Skin: Warm, dry, no erythema, no rash. [] Back: No tenderness, no CVA tenderness. [] Extremities: No tenderness, no cyanosis, no clubbing, ROM intact, no edema. [] Neurologic: Alert and oriented X 3, normal motor function, normal sensory function, no focal deficits noted. [] Psychologic: Affect normal, judgement normal, mood normal. [] Current Patient Data: Labs: Laboratory Tests Test 04/13/21 15:55 04/13/21 16:15 White Blood Count 5.7 x10^3/uL Red Blood Count 4.97 x10^6/uL Hemoglobin 14.0 g/dL Hematocrit 40.8 % Mean Corpuscular Volume 82 fL Mean Corpuscular Hemoglobin 28 pg Mean Corpuscular Hemoglobin Concent 34 g/dL Red Cell Distribution Width 15.0 % Platelet Count 295 x10^3/uL Neutrophils (%) (Auto) 79 % Lymphocytes (%) (Auto) 6 % Monocytes (%) (Auto) 12 % Eosinophils (%) (Auto) 2 % Basophils (%) (Auto) 1 % Neutrophils # (Auto) 4.5 x10^3/uL Lymphocytes # (Auto) 0.3 x10^3/uL Monocytes # (Auto) 0.7 x10^3/uL Eosinophils # (Auto) 0.1 x10^3/uL Basophils # (Auto) 0.1 x10^3/uL Maternal Serum HCG Beta Subunit < 1 mIU/mL Sodium Level 136 mmol/L Potassium Level 3.6 mmol/L Chloride Level 102 mmol/L Carbon Dioxide Level 22 mmol/L Anion Gap 12 Blood Urea Nitrogen 6 mg/dL Creatinine 0.8 mg/dL Estimated GFR (Cockcroft-Gault) 104.9 BUN/Creatinine Ratio 8 Glucose Level 89 mg/dL Calcium Level 9.1 mg/dL Total Bilirubin 0.4 mg/dL Aspartate Amino Transf (AST/SGOT) 16 U/L Alanine Aminotransferase (ALT/SGPT) 30 U/L Alkaline Phosphatase 43 U/L Troponin I High Sensitivity 5 ng/L Total Protein 8.1 g/dL Albumin 3.5 g/dL Albumin/Globulin Ratio 0.8 SARS-CoV-2 Antigen (Rapid) Negative Lactic Acid Level 1.4 mmol/L Influenza Type A Antigen Negative Influenza Type B Antigen Negative Current Medications Medications (Trade) Dose Ordered Sig/Jeff Route PRN Reason Start Time Stop Time Status Last Admin Dose Admin Sodium Chloride 1,000 ml @ 999 mls/hr 1X ONCE IV 04/13/21 15:45 04/13/21 16:45 DC 04/13/21 15:45 Ondansetron HCl (Zofran) 4 mg 1X ONCE IVP 04/13/21 15:45 04/13/21 15:46 DC 04/13/21 15:45 Fentanyl Citrate (Fentanyl 2ml Vial) 50 mcg 1X ONCE IVP 04/13/21 16:00 04/13/21 16:02 DC 04/13/21 16:28 Iohexol (Omnipaque 350 Mg/ml) 100 ml 1X ONCE IV 04/13/21 16:30 04/13/21 16:32 DC 04/13/21 16:30 Ketorolac Tromethamine (Toradol 30mg Vial) 30 mg 1X ONCE IVP 04/13/21 18:00 04/13/21 18:01 DC 04/13/21 17:50 Vital Signs: Vital Signs Date Time Temp Pulse Resp B/P (MAP) Pulse Ox O2 Delivery O2 Flow Rate FiO2 04/13/21 19:30 90 18 130/86 (101) 98 Room Air 04/13/21 17:35 95 18 140/82 (101) 98 Room Air 04/13/21 16:29 94 15 121/81 (94) 95 Room Air 04/13/21 16:28 Room Air 04/13/21 15:21 99.1 105 21 120/73 (89) 96 Room Air 99.1 Vital Signs Date Time Temp Pulse Resp B/P (MAP) Pulse Ox O2 Delivery O2 Flow Rate FiO2 04/13/21 15:21 99.1 105 21 120/73 (89) 96 Room Air 99.1 EKG: EKG: EKG done at [address] Palma at 1555 no STEMI, EKG shows sinus tachycardia with T wave inversion in lead III at a rate of 102 with a ND interval of 164 ms and a QT interval of 434 ms [] Radiology/Procedures: Radiology/Procedures: REASON: cough, SOA PROCEDURE: CT ANGIOGRAPHY CHEST EXAM: CT chest with contrast - pulmonary embolus protocol CLINICAL HISTORY: Cough, shortness of air. COMPARISON: 03/27/2021 TECHNIQUE: CT of the chest following the administration of intravenous contrast during the pulmonary arterial phase. Axial, coronal and sagittal reformatted images were generated including MIP images. ---PQRS compliance statement - One or more of the following individualized dose reduction techniques were utilized for this study: 1. Automated exposure control 2. Adjustment of the mA and/or kV according to patient size 3. Use of iterative reconstruction technique--- FINDINGS: CHEST: Diagnostic quality: Adequate. Pulmonary emboli: None seen Right heart strain: None Pulmonary arteries: Normal in caliber. Heart is not enlarged. No pericardial effusion. No pleural effusion. No pneumothorax. No axillary lymphadenopathy. Right hilar lymph node measures 2.1 x 1.2 cm.s Spiculated right upper lobe nodule measures 1.4 x 1.2 cm. Previously seen groundglass and solid parenchymal opacities including left lower lobe opacities are seen. Previously seen nodular opacities have since improved/decreased.l 5 mm nodule posterior right lower lobe. Visualized Upper abdomen: Unremarkable Bones: No aggressive osseous lesion is seen. IMPRESSION: No evidence for acute pulmonary embolus. Bilateral nodular opacities bilaterally have improved. Residual right upper lobe spiculated nodule is seen. Follow-up CT in 3 months is recommended to resolution. Differential includes septic emboli or infectious/proliferative process. Malignancy is not excluded but thought unlikely given patient's age. [] Course & Med Decision Making: Course & Med Decision Making Pertinent Labs and Imaging studies reviewed. (See chart for details) 190 reassessment of patient, patient states she feels much better patient informed that her chest CT scan shows improvement in the inflammation and and the infiltrates that were in her lungs. Patient's vital signs have been stable while here in the emergency department patient has had no decrease in sats. Will discharge patient home to continue her antibiotics as previously prescribed patient will be given a list of primary care physicians within the [facility] system and in the community that she can follow-up with for further management, also informed her to call Dr. Mayers's office in the a.m. to see about getting an earlier appointment. Patient verbalizes understanding of discharge instructions and agrees with plan of care. Tai Disclaimer: Tai Disclaimer: This electronic medical record was generated, in whole or in part, using a voice recognition dictation system. Departure Departure Impression: Primary Impression: Fever and chills Additional Impression: Pneumonia Qualified Codes: J18.9 - Pneumonia, unspecified organism Disposition: HOME / SELF CARE / HOMELESS Condition: STABLE Referrals: UNKNOWN PCP NAME (PCP) ALHAJI WEST MD, MICHAEL M MD Patient Instructions: Pneumonia, Adult Additional Instructions: Continue with current antibiotic treatment from your hospitalization. Tylenol and/or ibuprofen as needed for pain Increase by mouth fluids resting at frequent intervals. Follow-up with Dr. West or one of the primary care physicians or clinics listed on the brochures for further management Scripts No Active Prescriptions or Reported Meds NORIS JONES APRN Apr 13, 2021 15:39
[2021-04-13] MEDS ORDERED: ONDANSETRON PF 4 MG/2 ML VIAL. IVP ONE (15:45)
[2021-04-13] MEDS ORDERED: IV NORMAL SALINE 1000ML BAG 1,000 ML IV ONE (15:45)
[2021-04-13] MEDS ORDERED: fentaNYL PF VIAL 100 MCG/2 ML VIAL IVP ONE (16:00)
[2021-04-13 16:04] LABS: BASO # 0.1 x10^3/uL (0.0-0.2); BASO % 1 % (0-3); EOS # 0.1 x10^3/uL (0.0-0.7); EOS % 2 % (0-3); HEMATOCRIT 40.8 % (36.0-47.0); LYMPH # 0.3 x10^3/uL (1.0-4.8); LYMPH % 6 % (24-48); MEAN CORPUSCULAR HEMOGLOBIN 28 pg (25-35); MEAN CORPUSCULAR HGB CONC 34 g/dL (31-37); MEAN CORPUSCULAR VOLUME 82 fL (79-100); MONO # 0.7 x10^3/uL (0.0-1.1); MONO % 12 % (0-9); NEUT # 4.5 x10^3/uL (1.8-7.7); NEUT % 79 % (31-73); PLATELET COUNT 295 x10^3/uL (140-400); RED BLOOD COUNT 4.97 x10^6/uL (3.50-5.40); WHITE BLOOD COUNT 5.7 x10^3/uL (4.0-11.0)
[2021-04-13 16:14] LABS: CALCIUM 9.1 mg/dL (8.5-10.1); CREATININE 0.8 mg/dL (0.6-1.0); GFR 104.9; POTASSIUM 3.6 mmol/L (3.5-5.1)
[2021-04-13 16:20] LABS: ALBUMIN 3.5 g/dL (3.4-5.0); ALBUMIN/GLOBULIN RATIO 0.8 (1.0-1.7); TOTAL BILIRUBIN 0.4 mg/dL (0.2-1.0); TOTAL PROTEIN 8.1 g/dL (6.4-8.2)
[2021-04-13] MEDS ORDERED: IOHEXOL 350 MG/ML 100 ML VIAL. IV ONE (16:30)
[2021-04-13 16:38] LABS: INFLUENZA A PATIENT NEGATIVE (NEGATIVE); INFLUENZA B PATIENT NEGATIVE (NEGATIVE)
[2021-04-13] MEDS ORDERED: KETOROLAC 30 MG/ML VIAL. IVP ONE (18:00)
--- NOTE | 2021-04-13 18:37 | RAD ---
EXAM: CT chest with contrast - pulmonary embolus protocol CLINICAL HISTORY: Cough, shortness of air. COMPARISON: 03/27/2021 TECHNIQUE: CT of the chest following the administration of intravenous contrast during the pulmonary arterial phase. Axial, coronal and sagittal reformatted images were generated including MIP images. ---PQRS compliance statement - One or more of the following individualized dose reduction techniques were utilized for this study: 1. Automated exposure control 2. Adjustment of the mA and/or kV according to patient size 3. Use of iterative reconstruction technique--- FINDINGS: CHEST: Diagnostic quality: Adequate. Pulmonary emboli: None seen Right heart strain: None Pulmonary arteries: Normal in caliber. Heart is not enlarged. No pericardial effusion. No pleural effusion. No pneumothorax. No axillary lym phadenopathy. Right hilar lymph node measures 2.1 x 1.2 cm.s Spiculated right upper lobe nodule measures 1.4 x 1.2 cm. Previously seen groundglass and solid paren chymal opacities including left lower lobe opacities are seen. Previously seen nodular opacities have since improved/decreased.l 5 mm nodule posterior right lower lobe. Visualized Upper abdomen: Unremarkable Bones: No aggressive osseous lesion is seen. IMPRESSION: No evidence for acute pulmonary embolus. Bilateral nodular opacities bilaterally have improved. Residual right upper lobe spiculated nodule is seen. Follow-up CT in 3 months is recommended to resolution. Differential includes septic emboli or infectious/proliferative process. Malignancy is not excluded but thought unlikely given patient's age . Electronically signed by: Johnny Sanchez MD (04/13/2021 6:34 PM) [facility]
[2021-04-13 19:30] VITALS: BP 130/86
--- NOTE | 2021-04-14 03:38 | EKG ---
[facility] [address] [place] [address] Test Date: 2021-04-13 Test Time: 15:51:11 Pat Name: SYLVIE CHRISTENSEN Department: Room: Gender: F Claims Agent Right Of Way: : 1995 Requested By: NORIS JONES Order Number: [id number] Reading MD: Measurements Intervals [place] Rate: 102 P: 64 OR: 164 QRS: 46 QRSD: 88 T: 42 QT: 330 QTc: 434 Interpretive Statements SINUS TACHYCARDIA INCOMPLETE RIGHT BUNDLE BRANCH BLOCK OTHERWISE NORMAL ECG RI6.01 No previous ECG available for comparison
--- NOTE | 2021-04-14 17:04 | NUR ---
IP: Informed pt of positive covid test and the need to quarantine for 10 days. Pt verbalized understanding.
== END 2021-04-13 19:55 | disposition home or self-care (01) ==
LOC: ER 14:58
DX: U07.1 COVID-19 (principal); J18.9 Pneumonia, unspecified organism; F17.200 Nicotine dependence, unspecified, uncomplicated
CPT/HCPCS: 36415; 71275; 80053; 83605; 84484; 84702; 85025; 87040; 87426; 87804; 93005; 96361; 96374; 96375; 99285; J1885; J2405; J3010; J7030; Q9967; U0003; U0005